=== PATIENT | female | born 1950 | race American Indian/Alaskan Native ===

== ENCOUNTER 2020-02-29 11:57 | Inpatient (IN) | payer OTHER ==
--- NOTE | 2020-02-29 12:15 | Consultation ---
History of Present Illness Consult date: 02/29/20 History of present illness: [facility] Date of Service: 02/29/2020 12:09:20 Impression: Rule Out Acute Ischemic Stroke Syncope Comments/Sign-Out: 69 y/o woman with h/o CAD presents to the ED after a reported syncopal episode. NIHSS 1 (missed month). Has no focal neurologic deficits. Metrics: Last Known Well: 02/29/2020 11:30:00 [facility] Notification Time: 02/29/2020 12:08:52 Arrival Time: 02/29/2020 11:57:00 Stamp Time: 02/29/2020 12:09:20 Time First Login Attempt: 02/29/2020 12:12:06 Video Start Time: 02/29/2020 12:12:06 Symptoms: syncope NIHSS Start Assessment Time: 02/29/2020 12:17:28 Patient is not a candidate for tPA. Patient was not deemed candidate for tPA thrombolytics because of Resolved symptoms (no residual disabling symptoms). Video End Time: 02/29/2020 12:36:26 CT head was reviewed. Lower Likelihood of Large Vessel Occlusion but Following Stat Studies are Recomm ended CTA Head and Neck. ED Physician notified of diagnostic impression and management plan on 02/29/2020 12:37:24 Our recommendations are outlined below. Recommendations: Activate Stroke Protocol Admission/Order Set Stroke/Telemetry Floor Neuro Checks Bedside Swallow Eval DVT Prophylaxis IV Fluids, Normal Saline Head of Bed 30 Degrees Euglycemia and Avoid Hyperthermia (PRN Acetaminophen) ASA if no contraindication Routine Consultation with Inhouse Neurology for Follow up Care Sign Out: Discussed with Emergency Department Provider History of Present Illness: Patient is a 69 year old Female. Patient was brought by EMS for symptoms of syncope 69 y/o woman with h/o CAD presents to the ED after a reported syncopal episode. Last reported well at 1100 as per EMS at bedside. EMS reported she was diaphoretic and had garbled speech at the scene. Emergent telestroke consult requested. CT head reviewed and case discussed with ED staff. No family at bedside. ED staff does not have any contact information on the family. NIHSS 1 (missed month). Patient is fluent, follows commands has does not have any focal motor/sensory deficits. She says she does not know why she is in the hospital. CTA head/neck pending Examination: 1A: Level of Consciousness - Alert; keenly responsive + 0 1B: Ask Month and Age - 1 Question Right + 1 1C: Blink Eyes & Squeeze Hands - Performs Both Tasks + 0 2: Test Horizontal Extraocular Movements - Normal + 0 3: Test Visual Street - No Visual Loss + 0 4: Test Facial Palsy (Use Grimace if Obtunded) - Normal symmetry + 0 5A: Test Left Arm Motor Drift - No Drift for 10 Seconds + 0 5B: Test Right Arm Motor Drift - No Drift for 10 Seconds + 0 6A: Test Left Leg Motor Drift - No Drift for 5 Seconds + 0 6B: Test Right Leg Motor Drift - No Drift for 5 Seconds + 0 7: Test Limb Ataxia (FNF/Heel-Platt) - No Ataxia + 0 8: Test Sensation - Normal; No sensory loss + 0 9: Test Language/Aphasia - Normal; No aphasia + 0 10: Test Dysarthria - Normal + 0 11: Test Extinction/Inattention - No abnormality + 0 NIHSS Score: 1 Patient/Family was informed the Neurology Consult would happen via TeleHealth consult by way of interactive audio and video telecommunications and consented to receiving care in this manner. Due to the immediate potential for life-threatening deterioration due to underlying acute neurologic illness, I spent 25 minutes providing critical care. This time includes time for face to face visit via telemedicine, review of medical records, imaging studies and discussion of findings with providers, the patient and/or family. Dr Benitez Martínez [facility] Case [id number] Medications and Allergies Allergies Allergy/AdvReac Type Severity Reaction Status Date / Time No Known Allergies Allergy Unverified 02/21/16 12:44 Home Medications Medication Instructions Recorded Confirmed Last Taken Type AtorvaSTATin [Lipitor] 80 mg PO QHS #60 tablet 02/24/16 Unknown Rx Heparin/ 0.45% NaCl Drip [Heparin/ 500 ml IV TITRATE #1 bag 02/24/16 Unknown Rx 0.45% NaCl-25,000 Unit/500 ml] Losartan [Cozaar] 50 mg PO QDAY #30 tablet 02/24/16 Unknown Rx Metoprolol [Lopressor TAB] 50 mg PO Q8H #60 tablet 02/24/16 Unknown Rx Nitroglycerin [Nitrostat] 0.4 mg SL .Q5MIN PRN #20 tablet 02/24/16 Unknown Rx Results - Laboratory Findings CBC and BMP: 02/29/20 12:18 Abnormal Lab Findings: Abnormal Labs 02/29/20 12:14 POC Glucose 194 H
[2020-02-29 12:37] LABS: Basophils % (Auto) 0.7 % (0.0-1.8); Eosinophils % (Auto) 0.7 % (0.0-4.3); Hematocrit 42.1 % (30.3-42.9); Hemoglobin 13.9 gm/dl (10.1-14.3); Lymphocytes % (Auto) 36.7 % (13.4-35.0); Mean Corpuscular HGB Conc 33 % (30-34); Mean Corpuscular Volume 91 fl (79-97); Monocytes # (Auto) 0.3 K/mm3 (0.0-0.8); Monocytes % (Auto) 6.2 % (0.0-7.3); Platelet Count 203 K/mm3 (140-440); Red Blood Count 4.64 M/mm3 (3.65-5.03); Red Cell Distribution Width 14.7 % (13.2-15.2)
--- NOTE | 2020-02-29 12:45 | Cat Scan Report ---
CT head/brain wo con INDICATION: Slurred speech and weakness. TECHNIQUE: All CT scans at this location are performed using CT dose reduction for ALARA by means of automated e xposure control. COMPARISON: None available. FINDINGS: There is no acute hemorrhage, adverse mass effect, or hydrocephalus. There is no appreciable acute in farct. There are chronic small infarcts in the left occipital lobe, left inferior parietal lobule and left middle frontal gyrus. Ventricular and cisternal size appears normal for age. Included paranasal sinuses and mastoid air cells are clear. IMPRESSION: 1. No acute findings. No appreciable acute infarct. 2. Chronic small infarcts in the left cerebrum as described above. Findings discussed with Dr. Fuchs at 11:40 AM on 02/29/2020. Signer Name: Lazaro Troncoso MD Signed: 02/29/2020 12:40 PM Workstation Name: [id number]
[2020-02-29 12:47] LABS: INR 0.99 (0.87-1.13)
[2020-02-29 12:49] LABS: Partial Thromboplastin Time 25.5 Sec. (24.2-36.6); Thrombin Time 15.9 Sec. (15.1-19.6)
[2020-02-29 12:52] LABS: BUN/Creatinine Ratio 13; Blood Urea Nitrogen 12 mg/dL (7-17); Hemolysis Index 15
--- NOTE | 2020-02-29 12:55 | XRay Report ---
CHEST 1 VIEW INDICATION / CLINICAL INFORMATION: hypertension. COMPARISON: 02/21/2016 FINDINGS: SUPPORT DEVICES: None. HEART / MEDIASTINUM: Changes of median sternotomy are noted. LUNGS / PLEURA: No focal infiltrate is seen. No pneumothorax is seen.. No pneumothorax. ADDITIONAL FINDINGS: No significant additional findings. IMPRESSION: 1. No acute findings. Signer Name: Fantasma Schultz MD Signed: 02/29/2020 12:51 PM Workstation Name: [id number]
[2020-02-29 13:10] LABS: Alanine Aminotransferase 10 units/L (7-56); Albumin 3.9 g/dL (3.9-5)
[2020-02-29 13:16] LABS: Bilirubin,Direct < 0.2 mg/dL (0-0.2)
--- NOTE | 2020-02-29 13:18 | Emergency Department Report ---
ED Neuro Deficit HPI - General Stated Complaint: POSS STROKE Time Seen by Provider: 02/29/20 12:18 Source: EMS - History of Present Illness Initial Comments: This is a 69-year-old female with limited ability to provide historical i nformation. As I understand from paramedics patient had a syncopal episode at home. After which her speech was somewhat garbled. There is no report of seizure activity. She has no history of seizure. Patient presents to the emergency department. She states that she is back to normal. She seems to speak Vietnamese poorly and tends to rotate between languages somewhat inappropriately. I do not know what her [place] language is. There is no family available. Patient was initially seen by the tele-neurologist who is working with the same limited historical information. He found the patient to have a stroke score of 1 which I did replicate. I reviewed the patient's CT which shows at least 3 old left hemispheric stroke with the largest in the occipital area. Radiologist confirmed that there was no acute process. Tele-neurologist Dr. Barrera stated that he doubted that the patient had a large vessel occlusion. Notwithstanding. he wanted the patient to go for emergent CT angiogram which she had ordered. Results are pending. Reviewed the patient's previous medical record indicates that she has nonischemic cardiomyopathy with multivessel disease and an EF of 25 to 30% as per her 2016 discharge summary: Hospital course: Patient is a 65 years old -J[place] female, with no past medical history, visiting here from [facility], who presented to the hospital with two-week history of chest pain associated with shortness of breath, nausea and vomiting. Found to have EKG changes and elevated troponin, as well as, uncontrolled hypertension and hyperlipidemia. He underwent myocardial perfusion scan which was abnormal, so cardiology was consulted and she underwent cardiac catheterization that revealed severe multivessel disease including distal left main, ischemic cardiomyopathy with EF 25-30%. Started on appropriate treatment - BB, ACEI, antiplatelet, statin. She is transferred to [facility] for CABG (placed on heparin drip). Disposition: DC/TX ANOTHER TYPE HEALTHCARE Time spent for discharge: 45 min spent coordinating patient's transfer to [facility] - Discharge Diagnoses (1) NSTEMI (non-ST elevated myocardial infarction) Status: Acute (2) CAD in [place] artery Status: Acute (3) Ischemic cardiomyopathy Status: Acute (4) HTN (hypertension) Status: Acute (5) Hyperlipidemia History of same: No (Uncertain) Place: home Severity: moderate, severe Quality: other On Anticoagulants: No Context: sudden onset Associated Symptoms: denies other symptoms (Limited historical information) - Related Data Home Medications: Home Medications Medication Instructions Recorded Confirmed Last Taken Aspirin BABY CHEW TAB 81 mg PO DAILY 02/29/20 02/29/20 Unknown Atorvastatin 80 mg PO QHS 02/29/20 02/29/20 Unknown Ibuprofen [Motrin] 800 mg PO DAILY PRN 02/29/20 02/29/20 Unknown Om3/Dha/Epa/Cod Liver Oil/A/D3 1 each PO DAILY 02/29/20 02/29/20 Unknown [Cod Liver Oil Softgel] amLODIPine [Norvasc] 5 mg PO DAILY 02/29/20 02/29/20 Unknown carvediloL [Coreg] 12.5 mg PO BID 02/29/20 02/29/20 Unknown predniSONE [Deltasone] 20 mg PO BID 02/29/20 02/29/20 Unknown Allergies/Adverse Reactions: Allergies Allergy/AdvReac Type Severity Reaction Status Date / Time No Known Allergies Allergy Unverified 02/21/16 12:44 ED Review of Systems ROS: Stated complaint: POSS STROKE Other details as noted in HPI Comment: Unobtainable due to pts medical conditions ED Past Medical Hx - Past Medical History Hx Arthritis: Yes (pt.'s and daughter effect left knee the most) Additional medical history: Prior stroke. - Social History Smoking Status: Never Smoker - Medications Home Medications: Home Medications Medication Instructions Recorded Confirmed Last Taken Type Aspirin BABY CHEW TAB 81 mg PO DAILY 02/29/20 02/29/20 Unknown History Atorvastatin 80 mg PO QHS 02/29/20 02/29/20 Unknown History Ibuprofen [Motrin] 800 mg PO DAILY PRN 02/29/20 02/29/20 Unknown History Om3/Dha/Epa/Cod Liver Oil/A/D3 1 each PO DAILY 02/29/20 02/29/20 Unknown History [Cod Liver Oil Softgel] amLODIPine [Norvasc] 5 mg PO DAILY 02/29/20 02/29/20 Unknown History carvediloL [Coreg] 12.5 mg PO BID 02/29/20 02/29/20 Unknown History predniSONE [Deltasone] 20 mg PO BID 06/21/20 06/21/20 Unknown History ED Neuro Physical Exam - General Limitations: Language Barrier General appearance: alert, in no apparent distress Suspected Stroke: Yes (Possible) - Head Head exam: Present: atraumatic, normocephalic - Eye Eye exam: Present: normal appearance. Absent: scleral icterus - ENT ENT exam: Present: mucous membranes moist - Neck Neck exam: Present: normal inspection - Respiratory Respiratory exam: Present: normal lung sounds bilaterally. Absent: respiratory distress - Cardiovascular Cardiovascular Exam: Present: regular rate, normal rhythm. Absent: systolic murmur, diastolic murmur, rubs, gallop - GI/Abdominal GI/Abdominal exam: Present: soft, normal bowel sounds. Absent: distended, tenderness, guarding, rebound - Extremities Exam Extremities exam: Present: normal inspection - Back Exam Back exam: Present: normal inspection - Neurological Exam Neurological exam: Present: alert, oriented X3, CN II-XII intact. Absent: motor sensory deficit - NIHSS Assessment Interval: Baseline 1a. Level of Consciousness: alert/keenly responsive 1b. LOC Questions: answers 1 question correctly 1c. LOC Commands: performs tasks correctly 2. Best Gaze: normal 3. Visual: no visual loss (Expect the patient does have a visual loss considering the large occipital stroke that she has. She is difficult to examine at this point.) 4. Facial Palsy: normal symmetrical movement 5b. Motor Arm Right: no drift 5a. Motor Arm Left: no drift 6a. Motor Leg Left: no drift 6b. Motor Leg Right: no drift 7. Limb Ataxia: absent 8. Sensory: normal 9. Best Language: no aphasia 10. Dysarthria: normal (I am uncertain as to what the patient's language ability is) 11. Extinction/Inattention: no abnormality Total Score: 1 Stroke Severity: Minor Stroke - Psychiatric Psychiatric exam: Present: normal affect, normal mood - Skin Skin exam: Present: warm, dry, intact, normal color. Absent: rash ED Course Vital Signs 02/29/20 02/29/20 02/29/20 13:05 13:15 13:30 Pulse Rate 80 65 66 Respiratory Rate Blood Pressure 165/90 164/91 O2 Sat by Pulse 97 99 Oximetry 02/29/20 02/29/20 02/29/20 13:45 14:42 14:46 Pulse Rate 68 68 64 Respiratory 11 L 13 Rate Blood Pressure 167/91 157/83 157/83 O2 Sat by Pulse 99 99 100 Oximetry 02/29/20 02/29/20 02/29/20 15:00 15:16 15:30 Pulse Rate 68 65 67 Respiratory 12 14 19 Rate Blood Pressure 165/91 167/91 167/91 O2 Sat by Pulse 98 100 99 Oximetry 02/29/20 02/29/20 15:46 16:00 Pulse Rate 63 61 Respiratory 17 15 Rate Blood Pressure 167/91 166/88 O2 Sat by Pulse 99 98 Oximetry - Reevaluation(s) Reevaluation #1: Patient does not meet criteria for TPA. Is uncertain as to what the cause of her syncopal episode is. Personally I would think that a seizure is a real possibility considering the presence of multiple previous infarcts in the left hemisphere. The tele-neurologist is pursuing the possibility of large vessel occlusion. I agree that this is seemingly unlikely. Patient will be admitted to the hospital to complete her stroke work-up and for further evaluation and care. 02/29/20 13:21 Reevaluation #2: I spoke with the tele-neurologist at [facility] who also reviewed the CT. In addition he had a case conference with neurosurgery at [facility]. 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 She has 3 chronic left hemispheric strokes. They are interested in transferring her for catheter angiography. However at this time I do not have a bed. They stated that by 6-7 o'clock they will call me back with bed availability. 02/29/20 15:38 Reevaluation #3: Patient remains fully ambulatory. She is able to walk to the bathroom on her own. Nurses instructed to document neurochecks. Still waiting to hear from [facility] concerning bed availability. 02/29/20 17:13 Reevaluation #4: I spoke with the neurologist on-call at [facility]. He stated that he felt the patient was stable to stay at our facility overnight. They will place the patient on a waiting list. When a bed becomes available they will contact the hospitalist service to initiate transfer. Dr. Anderson is informed. The patient is admitted to the telemetry. 02/29/20 17:55 - Lab Data Result diagrams: 02/29/20 12:18 02/29/20 12:18 Lab Results 02/29/20 02/29/20 02/29/20 Range/Units 12:14 12:18 12:18 WBC 5.4 (4.5-11.0) K/mm3 RBC 4.64 (3.65-5.03) M/mm3 Hgb 13.9 (10.1-14.3) gm/dl Hct 42.1 (30.3-42.9) % MCV 91 (79-97) fl MCH 30 (28-32) pg MCHC 33 (30-34) % RDW 14.7 (13.2-15.2) % Plt Count 203 (140-440) K/mm3 Lymph % (Auto) 36.7 H (13.4-35.0) % [place] % (Auto) 6.2 (0.0-7.3) % Eos % (Auto) 0.7 (0.0-4.3) % Baso % (Auto) 0.7 (0.0-1.8) % Lymph # 2.0 (1.2-5.4) K/mm3 [place] # 0.3 (0.0-0.8) K/mm3 Eos # 0.0 (0.0-0.4) K/mm3 Baso # 0.0 (0.0-0.1) K/mm3 Seg Neutrophils % 55.7 (40.0-70.0) % Seg Neutrophils # 3.0 (1.8-7.7) K/mm3 PT 12.9 (12.2-14.9) Sec. INR 0.99 (0.87-1.13) APTT 25.5 (24.2-36.6) Sec. Thrombin Time 15.9 (15.1-19.6) Sec. Sodium (137-145) mmol/L Potassium (3.6-5.0) mmol/L Chloride (98-107) mmol/L Carbon Dioxide (22-30) mmol/L Anion Gap mmol/L BUN (7-17) mg/dL Creatinine (0.7-1.2) mg/dL Estimated GFR ml/min BUN/Creatinine Ratio % Glucose (65-100) mg/dL POC Glucose 194 H (70-105) Calcium (8.4-10.2) mg/dL Total Bilirubin (0.1-1.2) mg/dL Direct Bilirubin (0-0.2) mg/dL Indirect Bilirubin mg/dL AST (5-40) units/L ALT (7-56) units/L Alkaline Phosphatase (35-129) units/L Troponin T (0.00-0.029) ng/mL NT-Pro-B Natriuret Pep (0-900) pg/mL Total Protein (6.3-8.2) g/dL Albumin (3.9-5) g/dL Albumin/Globulin Ratio % 02/29/20 02/29/20 Range/Units 12:18 12:30 WBC (4.5-11.0) K/mm3 RBC (3.65-5.03) M/mm3 Hgb (10.1-14.3) gm/dl Hct (30.3-42.9) % MCV (79-97) fl MCH (28-32) pg MCHC (30-34) % RDW (13.2-15.2) % Plt Count (140-440) K/mm3 Lymph % (Auto) (13.4-35.0) % [place] % (Auto) (0.0-7.3) % Eos % (Auto) (0.0-4.3) % Baso % (Auto) (0.0-1.8) % Lymph # (1.2-5.4) K/mm3 [place] # (0.0-0.8) K/mm3 Eos # (0.0-0.4) K/mm3 Baso # (0.0-0.1) K/mm3 Seg Neutrophils % (40.0-70.0) % Seg Neutrophils # (1.8-7.7) K/mm3 PT (12.2-14.9) Sec. INR (0.87-1.13) APTT (24.2-36.6) Sec. Thrombin Time (15.1-19.6) Sec. Sodium 138 (137-145) mmol/L Potassium 4.2 (3.6-5.0) mmol/L Chloride 101.3 (98-107) mmol/L Carbon Dioxide 26 (22-30) mmol/L Anion Gap 15 mmol/L BUN 12 (7-17) mg/dL Creatinine 0.9 (0.7-1.2) mg/dL Estimated GFR > 60 ml/min BUN/Creatinine Ratio 13 % Glucose 179 H (65-100) mg/dL POC Glucose (70-105) Calcium 9.0 (8.4-10.2) mg/dL Total Bilirubin 0.80 (0.1-1.2) mg/dL Direct Bilirubin < 0.2 (0-0.2) mg/dL Indirect Bilirubin 0.6 mg/dL AST 16 (5-40) units/L ALT 10 (7-56) units/L Alkaline Phosphatase 103 (35-129) units/L Troponin T < 0.010 (0.00-0.029) ng/mL NT-Pro-B Natriuret Pep 19.16 (0-900) pg/mL Total Protein 7.1 (6.3-8.2) g/dL Albumin 3.9 (3.9-5) g/dL Albumin/Globulin Ratio 1.2 % Laboratory Results - last 24 hr 02/29/20 02/29/20 02/29/20 12:14 12:18 12:18 WBC 5.4 RBC 4.64 Hgb 13.9 Hct 42.1 MCV 91 MCH 30 MCHC 33 RDW 14.7 Plt Count 203 Lymph % (Auto) 36.7 H [place] % (Auto) 6.2 Eos % (Auto) 0.7 Baso % (Auto) 0.7 Lymph # 2.0 [place] # 0.3 Eos # 0.0 Baso # 0.0 Seg Neutrophils % 55.7 Seg Neutrophils # 3.0 PT 12.9 INR 0.99 APTT 25.5 Thrombin Time 15.9 Sodium Potassium Chloride Carbon Dioxide Anion Gap BUN Creatinine Estimated GFR BUN/Creatinine Ratio Glucose POC Glucose 194 H Calcium Total Bilirubin Direct Bilirubin Indirect Bilirubin AST ALT Alkaline Phosphatase Troponin T NT-Pro-B Natriuret Pep Total Protein Albumin Albumin/Globulin Ratio 02/29/20 02/29/20 12:18 12:30 WBC RBC Hgb Hct MCV MCH MCHC RDW Plt Count Lymph % (Auto) [place] % (Auto) Eos % (Auto) Baso % (Auto) Lymph # [place] # Eos # Baso # Seg Neutrophils % Seg Neutrophils # PT INR APTT Thrombin Time Sodium 138 Potassium 4.2 Chloride 101.3 Carbon Dioxide 26 Anion Gap 15 BUN 12 Creatinine 0.9 Estimated GFR > 60 BUN/Creatinine Ratio 13 Glucose 179 H POC Glucose Calcium 9.0 Total Bilirubin 0.80 Direct Bilirubin < 0.2 Indirect Bilirubin 0.6 AST 16 ALT 10 Alkaline Phosphatase 103 Troponin T < 0.010 NT-Pro-B Natriuret Pep 19.16 Total Protein 7.1 Albumin 3.9 Albumin/Globulin Ratio 1.2 - EKG Data -: EKG Interpreted by Me EKG shows normal: sinus rhythm, axis, intervals, QRS complexes, ST-T waves Interpretation: nonspecific ST-T wave magdalena, other (Poor R wave progression) - Radiology Data Radiology results: report reviewed (Chest x-ray no acute process) ICA and basilar artery occlusion. 3 old left hemispheric strokes. No acute finding. - Thrombolytic Inclusion/Exclusion Thrombolytic Contraindications: Rapidily Improving s/s Critical care attestation.: If time is entered above; I have spent that time in minutes in the direct care of this critically ill patient, excluding procedure time. ED Disposition Clinical Impression: Basilar artery occlusion Syncope Qualifiers: Syncope type: unspecified Qualified Code(s): R55 - Syncope and collapse Internal carotid artery occlusion Qualifiers: Laterality: left Qualified Code(s): I65.22 - Occlusion and stenosis of left carotid artery Disposition: DC-09 OP ADMIT IP TO THIS HOSP Is pt being admited?: Yes Does the pt Need Aspirin: Yes Condition: Stable Time of Disposition: 14:05
[2020-02-29] MEDS ORDERED: ASPIRIN 325 MG TAB PO ONE (14:05)
[2020-02-29] MEDS ORDERED: ASPIRIN 325 MG TAB ONE (14:39)
--- NOTE | 2020-02-29 14:49 | Cat Scan Report ---
CTA HEAD AND NECK WITH CONTRAST HISTORY: Syncope COMPARISON: None. TECHNIQUE: All CT scans at this location are performed using CT dose reduction for ALARA by means of automated exposure control.. 3-D/MIP reformats postprocessed. Percentage stenosis is determined by d irect quantitative measurements of diseased internal carotid artery diameter compared with normal dis mabel internal carotid artery reference segments or by criteria similar to NASCET where applicable. CONTRAST: 100 ml of Omnipaque 350 FINDINGS: CTA HEAD: Intracranial vertebral arteries: The left vertebral artery ends in the left PICA. There is no flow vi sualized in the right vertebral artery. Basilar artery: Essentially completely nonopacified. There is minimal opacification of the superior m argin of the artery from collaterals. Posterior cerebral arteries: Appear reasonably well opacified without significant stenosis or occlusi on. Intracranial internal carotid arteries: Minimal flow in the left cavernous and supraclinoid ICA from collateral vessels. There is a probable Nunez stenosis in the distal cavernous ICA of about 50%. Anterior cerebral arteries: No significant abnormality. Middle cerebral arteries: Diminutive size of the left middle cerebral arteries relative to the right, likely due to chronic left ICA occlusion. However, left MCA branches appear reasonably well opacifie d. Dural venous sinuses:Not optimally opacified. No significant abnormality. CTA NECK: Aortic arch: No significant abnormality. Cervical vertebral arteries: The right vertebral artery has slow flow and alternatively becomes occlu ded in the mid cervical spine. There are multifocal flow-limiting stenosis in the left vertebral raúl ry, which ends in the left PICA. Common carotid arteries: No significant abnormality. Cervical internal carotid arteries: The left cervical ICA is completely occluded from its origin. The re is a high-grade stenosis of about 75-80% of the proximal right cervical ICA due to mixed plaque. Additional findings: None. IMPRESSION: 1. Very low/almost no flow visualized in the intracranial vertebrobasilar system, likely on a chronic basis. There is some opacification of the superior basilar artery from collateralization from the co mmunicating arteries and the posterior cerebral arteries are opacified. 2. Completely occluded left cervical ICA. The intracranial left ICA is reconstituted from collateral vessels. This indicates that the right ICA is providing most of the anterior circulation (as well as much of the posterior circulation). There is an approximately 75-80% stenosis of the proximal right c ervical ICA, which should be viewed clinically in this setting of other arterial occlusions. 3. Diminished flow in the left MCA branches without focal large vessel occlusion. 4. The left vertebral artery ends in the left PICA. The right vertebral artery becomes occluded in th e mid cervical spine. There are multiple flow-limiting stenosis in the opacified vertebral arteries i n the neck. Findings were discussed with the neurologist front end architect at 1:40 PM on 02/29/2020. Signer Name: Lazaro Troncoso MD Signed: 02/29/2020 2:44 PM Workstation Name: [id number]
[2020-02-29] MEDS ORDERED: HYDROmorphone 1 MG/1 ML INJ IV PRN (20:05)
[2020-02-29] MEDS ORDERED: ACETAMINOPHEN 325 MG TAB PO PRN (20:05)
[2020-02-29] MEDS ORDERED: ONDANSETRON 4 MG/2 ML INJ IV PRN (20:05)
[2020-02-29] MEDS ORDERED: oxyCODONE /ACETAMINOPHEN 5-325MG TAB PO PRN (20:05)
--- NOTE | 2020-02-29 20:05 | History and Physical Report ---
History of Present Illness Date of examination: 02/29/20 Date of admission: 02/29/20 14:05 Chief complaint: Passed out and altered speech for the last couple of hours. History of present illness: -year-old female with limited ability to provide historical informatio had a syncopal episode at home. After which her speech was somewhat garbled. There is no report of seizure activity. She has no history of seizure. Patient presents to the emergency department. She states that she is back to normal. Patient has a language barrier. Patient had a CT head which showed old 3 strokes in the occipital area. Telemetry neurologist requested CT angiogram which showed abnormal blockages. Patient is in the process of transfer to [facility] because of abnormal CT angiogram. No shortness of breath no chest pain no palpitations. No seizures. Possible syncope. -------- 2016 discharge summary: Hospital course: Patient is a 65 years old -[place]ovenian female, with no past medical history, visiting here from [facility], who presented to the hospital with two-week history of chest pain associated with shortness of breath, nausea and vomiting. Found to have EKG changes and elevated troponin, as well as, uncontrolled hypertension and hyperlipidemia. He underwent myocardial perfusion scan which was abnormal, so cardiology was consulted and she underwent cardiac catheterization that revealed severe multivessel disease including distal left main, ischemic cardiomyopathy with EF 25-30%. Started on appropriate treatment - BB, ACEI, antiplatelet, statin. She is transferred to [facility] for CABG (placed on heparin drip). - Past Medical History Arthritis: Yes (pt.'s and daughter effect left knee the most) Additional medical history: Prior stroke. Hypertension hyperlipidemia Cardiomyopathy Coronary artery disease Surgical history CABG - Social History Smoking Status: Never Smoker Family history Htn - Medications Home Medications: Home Medications Medication Instructions Recorded Confirmed Last Taken Type Aspirin BABY CHEW TAB 81 mg PO DAILY 02/29/20 02/29/20 Unknown History Atorvastatin 80 mg PO QHS 02/29/20 02/29/20 Unknown History Ibuprofen [Motrin] 800 mg PO DAILY PRN 02/29/20 02/29/20 Unknown History Om3/Dha/Epa/Cod Liver Oil/A/D3 1 each PO DAILY 02/29/20 02/29/20 Unknown History [Cod Liver Oil Softgel] amLODIPine [Norvasc] 5 mg PO DAILY 02/29/20 02/29/20 Unknown History carvediloL [Coreg] 12.5 mg PO BID 02/29/20 02/29/20 Unknown History predniSONE [Deltasone] 20 mg PO BID 02/29/20 02/29/20 Unknown History Review of Systems ROS: Constitutional no weight loss or weight gain no fever or chills HEENT no sore throat no post nasal drip no diplopia Neck no neck stiffness no lymph gland enlargement Chest and lungs no shortness of breath cough or wheezing CVS no chest pain no diaphoresis no palpitations GI no nausea no vomiting no diarrhea Genitourinary system no dysuria no flank pain Musculoskeletal system no muscle pains no joint pains [employer] FE[employer]ER syncope and dysartria Skin no rash no itching Psychiatric no depression no homicidal or suicidal tendencies Hematologic no lymphedema or bruising Endocrine no polydipsia no polyuria no cold intolerance no heat intolerance Medications and Allergies Allergies Allergy/AdvReac Type Severity Reaction Status Date / Time No Known Allergies Allergy Unverified 02/21/16 12:44 Home Medications Medication Instructions Recorded Confirmed Last Taken Type Aspirin BABY CHEW TAB 81 mg PO DAILY 02/29/20 02/29/20 Unknown History Atorvastatin 80 mg PO QHS 02/29/20 02/29/20 Unknown History Ibuprofen [Motrin] 800 mg PO DAILY PRN 02/29/20 02/29/20 Unknown History Om3/Dha/Epa/Cod Liver Oil/A/D3 1 each PO DAILY 02/29/20 02/29/20 Unknown History [Cod Liver Oil Softgel] amLODIPine [Norvasc] 5 mg PO DAILY 02/29/20 02/29/20 Unknown History carvediloL [Coreg] 12.5 mg PO BID 02/29/20 02/29/20 Unknown History predniSONE [Deltasone] 20 mg PO BID 02/29/20 02/29/20 Unknown History Exam - Constitutional Vitals: Temp Pulse Resp BP Pulse Ox 71 15 166/88 100 02/29/20 17:00 02/29/20 17:00 02/29/20 17:00 02/29/20 17:00 General appearance: Present: no acute distress, well-nourished - EENT Eyes: Present: PERRL ENT: hearing intact, clear oral mucosa - Neck Neck: Present: supple, normal ROM - Respiratory Respiratory effort: normal Respiratory: bilateral: CTA - Cardiovascular Heart rate: 78 Rhythm: regular Heart Sounds: Present: S1 & S2. Absent: rub, click - Extremities Extremities: no ischemia, pulses intact, pulses symmetrical, No edema Peripheral Pulses: within normal limits - Abdominal General gastrointestinal: Present: soft, non-tender, non-distended, normal bowel sounds Female genitourinary: Present: normal - Integumentary Integumentary: Present: clear, warm, dry - Musculoskeletal Musculoskeletal: gait normal, strength equal bilaterally - Psychiatric Psychiatric: appropriate mood/affect, intact judgment & insight - Neurologic Neurologic: CNII-XII intact, moves all extremities, other (Speech normal) - Allied Health Allied health notes reviewed: nursing, case management HEART Score - HEART Score Troponin: Troponin T < 0.010 ng/mL (0.00-0.029) 02/29/20 12:18 Results - Labs CBC & Chem 7: 02/29/20 12:18 02/29/20 12:18 Labs: Laboratory Last Values WBC 5.4 K/mm3 (4.5-11.0) 02/29/20 12:18 RBC 4.64 M/mm3 (3.65-5.03) 02/29/20 12:18 Hgb 13.9 gm/dl (10.1-14.3) 02/29/20 12:18 Hct 42.1 % (30.3-42.9) 02/29/20 12:18 MCV 91 fl (79-97) 02/29/20 12:18 MCH 30 pg (28-32) 02/29/20 12:18 MCHC 33 % (30-34) 02/29/20 12:18 RDW 14.7 % (13.2-15.2) 02/29/20 12:18 Plt Count 203 K/mm3 (140-440) 02/29/20 12:18 Lymph % (Auto) 36.7 % (13.4-35.0) H 02/29/20 12:18 Knott % (Auto) 6.2 % (0.0-7.3) 02/29/20 12:18 Eos % (Auto) 0.7 % (0.0-4.3) 02/29/20 12:18 Baso % (Auto) 0.7 % (0.0-1.8) 02/29/20 12:18 Lymph # 2.0 K/mm3 (1.2-5.4) 02/29/20 12:18 Knott # 0.3 K/mm3 (0.0-0.8) 02/29/20 12:18 Eos # 0.0 K/mm3 (0.0-0.4) 02/29/20 12:18 Baso # 0.0 K/mm3 (0.0-0.1) 02/29/20 12:18 Seg Neutrophils % 55.7 % (40.0-70.0) 02/29/20 12:18 Seg Neutrophils # 3.0 K/mm3 (1.8-7.7) 02/29/20 12:18 PT 12.9 Sec. (12.2-14.9) 02/29/20 12:18 INR 0.99 (0.87-1.13) 02/29/20 12:18 APTT 25.5 Sec. (24.2-36.6) 02/29/20 12:18 Thrombin Time 15.9 Sec. (15.1-19.6) 02/29/20 12:18 Sodium 138 mmol/L (137-145) 02/29/20 12:18 Potassium 4.2 mmol/L (3.6-5.0) 02/29/20 12:18 Chloride 101.3 mmol/L (98-107) 02/29/20 12:18 Carbon Dioxide 26 mmol/L (22-30) 02/29/20 12:18 Anion Gap 15 mmol/L 02/29/20 12:18 BUN 12 mg/dL (7-17) 02/29/20 12:18 Creatinine 0.9 mg/dL (0.7-1.2) 02/29/20 12:18 Estimated GFR > 60 ml/min 02/29/20 12:18 BUN/Creatinine Ratio 13 % 02/29/20 12:18 Glucose 179 mg/dL (65-100) H 02/29/20 12:18 POC Glucose 194 (70-105) H 02/29/20 12:14 Calcium 9.0 mg/dL (8.4-10.2) 02/29/20 12:18 Total Bilirubin 0.80 mg/dL (0.1-1.2) 02/29/20 12:30 Direct Bilirubin < 0.2 mg/dL (0-0.2) 02/29/20 12:30 Indirect Bilirubin 0.6 mg/dL 02/29/20 12:30 AST 16 units/L (5-40) 02/29/20 12:30 ALT 10 units/L (7-56) 02/29/20 12:30 Alkaline Phosphatase 103 units/L (35-129) 02/29/20 12:30 Troponin T < 0.010 ng/mL (0.00-0.029) 02/29/20 12:18 NT-Pro-B Natriuret Pep 19.16 pg/mL (0-900) 02/29/20 12:30 Total Protein 7.1 g/dL (6.3-8.2) 02/29/20 12:30 Albumin 3.9 g/dL (3.9-5) 02/29/20 12:30 Albumin/Globulin Ratio 1.2 % 02/29/20 12:30 Short CBC 02/29/20 Range/Units 12:18 WBC 5.4 (4.5-11.0) K/mm3 Hgb 13.9 (10.1-14.3) gm/dl Hct 42.1 (30.3-42.9) % Plt Count 203 (140-440) K/mm3 [facility] 02/29/20 12:18 Sodium 138 Potassium 4.2 Chloride 101.3 Carbon Dioxide 26 BUN 12 Creatinine 0.9 Glucose 179 H Calcium 9.0 Cardiac Enzymes 02/29/20 Range/Units 12:18 Troponin T < 0.010 (0.00-0.029) ng/mL Liver Function 02/29/20 Range/Units 12:30 Total Bilirubin 0.80 (0.1-1.2) mg/dL Direct Bilirubin < 0.2 (0-0.2) mg/dL AST 16 (5-40) units/L ALT 10 (7-56) units/L Alkaline Phosphatase 103 (35-129) units/L Albumin 3.9 (3.9-5) g/dL Short CBC 02/29/20 Range/Units 12:18 WBC 5.4 (4.5-11.0) K/mm3 Hgb 13.9 (10.1-14.3) gm/dl Hct 42.1 (30.3-42.9) % Plt Count 203 (140-440) K/mm3 [facility] 02/29/20 12:18 Sodium 138 Potassium 4.2 Chloride 101.3 Carbon Dioxide 26 BUN 12 Creatinine 0.9 Glucose 179 H Calcium 9.0 Cardiac Enzymes 02/29/20 Range/Units 12:18 Troponin T < 0.010 (0.00-0.029) ng/mL Liver Function 02/29/20 Range/Units 12:30 Total Bilirubin 0.80 (0.1-1.2) mg/dL Direct Bilirubin < 0.2 (0-0.2) mg/dL AST 16 (5-40) units/L ALT 10 (7-56) units/L Alkaline Phosphatase 103 (35-129) units/L Albumin 3.9 (3.9-5) g/dL - Imaging and Cardiology EKG: report reviewed CT Scan - head: report reviewed Imaging and Cardiology: Neck CTA Very low/almost no flow visualized in the intracranial vertebrobasilar system likely on a chronic basis. There is some opacification of the superior basilar artery from collateralization from the communicating arteries and the posterior cerebral arteries are opacified Completely occluded left cervical ICA. The intracranial left ICA is reconstituted from collateral vessels. This indicates right ICA swallowing most of the anterior circulation as well as possible posterior circulation. There is an approximately 75 to 80% stenosis of the proximal right thyroid pole ICA. Which is simply new clinically in the setting of other arterial occlusions. Diminished flow in the left MCA branches without focal large vessel occlusion. The left vertebral artery ends in the left PICA. The right vertebral artery becomes occluded in the mid cervical spine. There are multiple flow-limiting stenosis and was opacified vertebral arteries in the neck .Head CTA Same findings as the neck CTA with completely occluded left cervical ICA and collaterals. Also very low/almost no flow visualized in the intracranial v ertebrobasilar system likely on a chronic basis. Head CT No acute findings no appreciable acute infarction Chronic small infarcts in the left cerebrum. Assessment and Plan Advance Directives: Yes (full code) Plan of care discussed with patient/family: Yes - Patient Problems (1) TIA (transient ischemic attack) Status: Acute Plan to address problem: Patient had dysarthria and some weakness and possible syncope. Work-up revealed massive blockage in the left ICA and the posterior vertebral system. ED physician Dr. Fuchs initiated transfer to [facility] for left ICA occlusion angioplasty versus carotid arterectomy. Patient was accepted by [facility] to be transferred to [facility] when bed available. To call the transfer center again today to know the status. Neuro consult requested (2) HTN (hypertension) Status: Chronic Qualifiers: Hypertension type: essential hypertension Qualified Code(s): I10 - Essential (primary) hypertension Plan to address problem: Continue antihypertensives. (3) Hyperlipidemia Status: Chronic Qualifiers: Hyperlipidemia type: mixed hyperlipidemia Qualified Code(s): E78.2 - Mixed hyperlipidemia Plan to address problem: Continue statins. (4) CAD in [place] artery Status: Acute Plan to address problem: Continue aspirin. And statins. (5) Ischemic cardiomyopathy Status: Chronic Plan to address problem: Stable (6) DVT prophylaxis Status: Acute Plan to address problem: On heparin and GI prophylaxis
[2020-02-29] MEDS ORDERED: SODIUM CHLORIDE 0.9% 1000 ML 1,000 ML IV SCH (20:15)
[2020-02-29 20:32] VITALS: BP 157/91
[2020-02-29] MEDS ORDERED: FAMOTIDINE 20 MG TAB PO SCH (22:00)
[2020-03-01] MEDS ORDERED: HEPARIN 5,000 UNIT/1 ML VIAL SUB-Q SCH (10:00)
[2020-03-01] MEDS ORDERED: ASPIRIN 325 MG TAB PO SCH (10:00)
== END 2020-02-29 22:30 | disposition short-term general hospital (02) | DRG 68 ==
LOC: ED 11:57 → 4A 14:05
PROVIDERS: ADMIT Internal Medicine; ATTEND Internal Medicine
DX: I65.22 Occlusion and stenosis of left carotid artery (principal); I10 Essential (primary) hypertension; R47.1 Dysarthria and anarthria; I25.10 Atherosclerotic heart disease of native coronary artery without angina pectoris; E78.2 Mixed hyperlipidemia; I25.5 Ischemic cardiomyopathy; Z95.1 Presence of aortocoronary bypass graft; Z82.49 Family history of ischemic heart disease and other diseases of the circulatory system; Z79.82 Long term (current) use of aspirin; Z79.899 Other long term (current) drug therapy
CPT/HCPCS: 36415; 70450; 70496; 70498; 71045; 80048; 80076; 82962; 83880; 84484; 85025; 85610; 85670; 85730; 93005; G0378; A9270-GY; Q9967

== ENCOUNTER 2020-03-14 16:21 | Observation (INO) | payer OTHER ==
--- NOTE | 2020-03-14 17:34 | Emergency Department Report ---
ED Neuro Deficit HPI - General Chief Complaint: Neuro Symptoms/Deficit Stated Complaint: WEAKNESS Time Seen by Provider: 03/14/20 17:05 Source: family, EMS Mode of arrival: Stretcher Limitations: No Limitations - History of Present Illness Initial Comments: Patient is 69 years old female with history of hypertension and stroke. Patient brought to the emergency room via EMS from home for evaluation of slurred speech and inability to walk for the last 2 days. Patient was seen here 2 weeks ago for similar presentation patient was transferred to [facility] because of the finding of multiple vertebral arteries stenosis. I discussed the patient w ith her son at [phone]. He stated that after his mother was discharged from [facility] she was doing well until 2 days ago when she started having difficulty speaking and drooling. She she also started having difficulty walking. According to his report he stated that they discussed with them the risk of surgery and the duct prefer not to do the surgery. He said they follow-up with her primary care physician 2 days after discharge from [place] and she was doing fine at that time and they order her some Benadryl to help with sleep. During my assessment patient with significant slurred speech and dysarthria. Patient is also unable to lift up her both right and left legs. -: days(s) (2) Location: speech, dysarthria, left leg, right leg Presenting Symptoms: Present: Weak/Paralyzed One Side, Unable to Speak Clearly Place: home - Related Data Home Medications: Home Medications Medication Instructions Recorded Confirmed Last Taken Aspirin BABY CHEW TAB 81 mg PO DAILY 02/29/20 02/29/20 Unknown Atorvastatin 80 mg PO QHS 02/29/20 02/29/20 Unknown Ibuprofen [Motrin] 800 mg PO DAILY PRN 02/29/20 02/29/20 Unknown Om3/Dha/Epa/Cod Liver Oil/A/D3 1 each PO DAILY 02/29/20 02/29/20 Unknown [Cod Liver Oil Softgel] amLODIPine [Norvasc] 5 mg PO DAILY 02/29/20 02/29/20 Unknown carvediloL [Coreg] 12.5 mg PO BID 02/29/20 02/29/20 Unknown predniSONE [Deltasone] 20 mg PO BID 02/29/20 02/29/20 Unknown Allergies/Adverse Reactions: Allergies Allergy/AdvReac Type Severity Reaction Status Date / Time No Known Allergies Allergy Unverified 02/21/16 12:44 ED Review of Systems ROS: Stated complaint: WEAKNESS Other details as noted in HPI Comment: Unobtainable due to pts medical conditions ED Past Medical Hx - Past Medical History Previous Medical History?: Yes Hx Hypertension: Yes Hx CVA: No Hx Arthritis: Yes (pt.'s and daughter effect left knee the most) Hx Dementia: No Additional medical history: Prior stroke. - Surgical History Past Surgical History?: Yes Hx Open Heart Surgery: Yes (bypass 2015) - Social History Smoking Status: Never Smoker Substance Use Type: None - Medications Home Medications: Home Medications Medication Instructions Recorded Confirmed Last Taken Type Aspirin BABY CHEW TAB 81 mg PO DAILY 02/29/20 02/29/20 Unknown History Atorvastatin 80 mg PO QHS 02/29/20 02/29/20 Unknown History Ibuprofen [Motrin] 800 mg PO DAILY PRN 02/29/20 02/29/20 Unknown History Om3/Dha/Epa/Cod Liver Oil/A/D3 1 each PO DAILY 02/29/20 02/29/20 Unknown History [Cod Liver Oil Softgel] amLODIPine [Norvasc] 5 mg PO DAILY 02/29/20 02/29/20 Unknown History carvediloL [Coreg] 12.5 mg PO BID 02/29/20 02/29/20 Unknown History predniSONE [Deltasone] 20 mg PO BID 02/29/20 02/29/20 Unknown History ED Neuro Physical Exam - General Limitations: No Limitations General appearance: alert, in no apparent distress Suspected Stroke: Yes - Head Head exam: Present: atraumatic, normocephalic, normal inspection - Eye Eye exam: Present: normal appearance, PERRL - ENT ENT exam: Present: normal exam, normal orophraynx, mucous membranes moist - Neck Neck exam: Present: normal inspection, full ROM. Absent: tenderness, meningismus, lymphadenopathy, thyromegaly - Respiratory Respiratory exam: Present: normal lung sounds bilaterally - Cardiovascular Cardiovascular Exam: Present: regular rate, normal rhythm, normal heart sounds - GI/Abdominal GI/Abdominal exam: Present: soft, normal bowel sounds. Absent: distended, tenderness, guarding, rebound, rigid, organomegaly, mass, bruit, pulsatile mass, hernia - Extremities Exam Extremities exam: Present: normal inspection, full ROM, normal capillary refill - Back Exam Back exam: Present: normal inspection. Absent: CVA tenderness (R), CVA tenderness (L) - Neurological Exam Neurological exam: Present: alert - NIHSS Assessment Interval: Baseline 1a. Level of Consciousness: alert/keenly responsive 1b. LOC Questions: answers no questions correctly 1c. LOC Commands: performs 1 task correctly 2. Best Gaze: normal 3. Visual: no visual loss 4. Facial Palsy: normal symmetrical movement 5b. Motor Arm Right: no drift 5a. Motor Arm Left: no drift 6a. Motor Leg Left: drift 6b. Motor Leg Right: drift 7. Limb Ataxia: absent 8. Sensory: no response/quadraplegic 9. Best Language: severe aphasia 10. Dysarthria: severe dysarthria 11. Extinction/Inattention: no abnormality Total Score: 11 Stroke Severity: Moderate Stroke - Psychiatric Psychiatric exam: Present: normal mood - Skin Skin exam: Present: warm, intact, normal color ED Course Vital Signs 03/14/20 03/14/20 03/14/20 16:36 16:45 16:46 Temperature 98.8 F Pulse Rate 88 105 H Respiratory 16 18 Rate Blood Pressure 158/80 158/60 158/80 Blood Pressure 158/60 [Left] O2 Sat by Pulse 98 96 Oximetry 03/14/20 03/14/20 03/14/20 17:00 17:16 17:30 Temperature Pulse Rate 97 H 96 H 94 H Respiratory 12 20 16 Rate Blood Pressure 153/103 154/96 170/87 Blood Pressure [Left] O2 Sat by Pulse 96 99 97 Oximetry 03/14/20 03/14/20 03/14/20 17:46 18:06 18:16 Temperature Pulse Rate 92 H 98 H 96 H Respiratory 13 15 16 Rate Blood Pressure 156/92 152/93 152/93 Blood Pressure [Left] O2 Sat by Pulse 98 66 L 99 Oximetry 03/14/20 03/14/20 03/14/20 18:30 18:46 18:57 Temperature Pulse Rate 99 H 94 H Respiratory 22 25 H 18 Rate Blood Pressure 152/93 152/93 Blood Pressure [Left] O2 Sat by Pulse 100 98 Oximetry 03/14/20 03/14/20 03/14/20 19:00 19:29 19:30 Temperature 98.2 F Pulse Rate 90 97 H 94 H Respiratory 17 22 13 Rate Blood Pressure 152/93 151/90 Blood Pressure 151/90 [Left] O2 Sat by Pulse 100 99 99 Oximetry 03/14/20 03/14/20 03/14/20 20:00 20:30 21:00 Temperature Pulse Rate 89 86 81 Respiratory 18 18 20 Rate Blood Pressure 151/90 151/90 151/90 Blood Pressure [Left] O2 Sat by Pulse 98 98 92 Oximetry 03/14/20 03/14/20 03/14/20 21:30 21:50 22:00 Temperature Pulse Rate 84 81 81 Respiratory 21 12 16 Rate Blood Pressure 151/90 151/90 151/90 Blood Pressure [Left] O2 Sat by Pulse 100 98 100 Oximetry 03/14/20 03/14/20 03/15/20 22:30 23:00 02:01 Temperature Pulse Rate 75 Respiratory 12 Rate Blood Pressure 151/90 151/90 151/90 Blood Pressure [Left] O2 Sat by Pulse 100 98 80 L Oximetry 03/15/20 03/15/20 03/15/20 02:13 02:20 02:23 Temperature 98 F Pulse Rate 86 98 H Respiratory 12 22 Rate Blood Pressure 151/90 151/90 Blood Pressure 125/87 [Left] O2 Sat by Pulse 79 L 98 98 Oximetry 03/15/20 03/15/20 03/15/20 02:30 02:40 02:50 Temperature Pulse Rate 82 77 78 Respiratory 11 L 14 15 Rate Blood Pressure 125/87 125/87 125/87 Blood Pressure [Left] O2 Sat by Pulse 91 100 96 Oximetry 03/15/20 03/15/20 03/15/20 03:00 03:19 03:27 Temperature 99.1 F 99.1 F Pulse Rate 83 85 84 Respiratory 17 18 Rate Blood Pressure 125/87 133/87 Blood Pressure 133/87 [Left] O2 Sat by Pulse 95 100 Oximetry - Lab Data Result diagrams: 03/14/20 17:37 03/14/20 17:37 Lab Results 03/14/20 03/14/20 03/14/20 Range/Units 17:37 17:37 17:37 WBC 5.0 (4.5-11.0) K/mm3 RBC 4.77 (3.65-5.03) M/mm3 Hgb 14.3 (10.1-14.3) gm/dl Hct 42.8 (30.3-42.9) % MCV 90 (79-97) fl MCH 30 (28-32) pg MCHC 33 (30-34) % RDW 14.6 (13.2-15.2) % Plt Count 221 (140-440) K/mm3 Lymph % (Auto) [place]ist [place] % (Auto) Florist Eos % (Auto) Florist Baso % (Auto) Florist Lymph # Florist Rush # Florist Eos # Florist Baso # Florist Seg Neutrophils % Florist Seg Neutrophils # Florist PT 13.4 (12.2-14.9) Sec. INR 1.04 (0.87-1.13) APTT 28.4 (24.2-36.6) Sec. Thrombin Time 16.0 (15.1-19.6) Sec. Sodium 133 L (137-145) mmol/L Potassium 3.5 L (3.6-5.0) mmol/L Chloride 91.7 L (98-107) mmol/L Carbon Dioxide 28 (22-30) mmol/L Anion Gap 17 mmol/L BUN 20 H (7-17) mg/dL Creatinine 1.0 (0.7-1.2) mg/dL Estimated GFR > 60 ml/min BUN/Creatinine Ratio 20 % Glucose 198 H (65-100) mg/dL Calcium 9.3 (8.4-10.2) mg/dL Total Creatine Kinase 113 (30-135) units/L CK-MB (CK-2) 1.3 (0.0-4.0) ng/mL CK-MB (CK-2) Rel Index 1.1 (0-4) Troponin T < 0.010 (0.00-0.029) ng/mL - Medical Decision Making Patient is 69 years old female with history of hypertension and stroke. Patient brought to the emergency room via EMS from home for evaluation of slurred speech and inability to walk for the last 2 days. Patient was seen here 2 weeks ago for similar presentation patient was transferred to [facility] because of the finding of multiple vertebral arteries stenosis. I discussed the patient with her son at [phone]. He stated that after his mother was discharged from [facility] she was doing well until 2 days ago when she started having difficulty speaking and drooling. She she also started having difficulty walking. According to his report he stated that they discussed with them the risk of surgery and the duct prefer not to do the surgery. He said they follow-up with her primary care physician 2 days after discharge from [place] and she was doing fine at that time and they order her some Benadryl to help with sleep. During my assessment patient with significant slurred speech and dysarthria. Patient is also unable to lift up her both right and left legs. Patient seen and examined by stroke tele-neurologist Dr. Wood, he advised patient to be admitted for MRI and further work-up. I discussed the patient with Dr. Anderson, he stated that he is coming down to see the patient. Critical care attestation.: If time is entered above; I have spent that time in minutes in the direct care of this critically ill patient, excluding procedure time. ED Disposition Clinical Impression: Stroke Disposition: DC-01 TO HOME OR SELFCARE Is pt being admited?: Yes Condition: Stable
[2020-03-14 18:08] LABS: Hematocrit 42.8 % (30.3-42.9); Hemoglobin 14.3 gm/dl (10.1-14.3); Mean Corpuscular HGB Conc 33 % (30-34); Mean Corpuscular Volume 90 fl (79-97); Platelet Count 221 K/mm3 (140-440); Red Blood Count 4.77 M/mm3 (3.65-5.03); Red Cell Distribution Width 14.6 % (13.2-15.2)
[2020-03-14 18:09] LABS: Creatine Kinase MB 1.3 ng/mL (0.0-4.0)
[2020-03-14 18:12] LABS: BUN/Creatinine Ratio 20; Blood Urea Nitrogen 20 mg/dL (7-17); Calcium 9.3 mg/dL (8.4-10.2); Hemolysis Index 23
[2020-03-14 18:16] LABS: INR 1.04 (0.87-1.13)
[2020-03-14 18:22] LABS: Partial Thromboplastin Time 28.4 Sec. (24.2-36.6)
--- NOTE | 2020-03-14 18:40 | Cat Scan Report ---
CT head/brain wo con INDICATION / CLINICAL INFORMATION: 69 years Female; MAIN. TECHNIQUE: Routine CT head without contrast. All CT scans at this location are performed using CT dos e reduction for ALARA by means of automated exposure control. COMPARISON: 02/29/2020 FINDINGS: BRAIN / INTRACRANIAL CONTENTS: Old, small branch MCA/MANAGER REPORTING infarct seen in the posterior cerebral hemis phere on the left-findings are not significantly changed from prior exam. Old, small branch infarcts are seen peripherally in the left frontal lobe as well, one of which involves the precentral gyrus on the left. These findings are not significantly changed from prior. New from prior is suggestion of low-density areas in the middle cerebellar peduncles bilaterally. Dif fusion imaging by MRI may be of benefit. Given the fact that there are multiple vascular distribution s involved between: New findings, embolic phenomenon should be considered. There is suggestion of sara e component of pontine disease as [id number] without diffusion imaging. Otherwise, no acute hemorrhage, mass effect, midline shift, hydrocephalus, or acute, large territori al infarct. No chronic infarct or atrophy appreciated. No significant white matter abnormality. CRANIOCERVICAL JUNCTION: No significant abnormality. ORBITS: No significant abnormality of visualized orbits. SINUSES / MASTOIDS: Minimal mucosal thickening seen in the ethmoids. ADDITIONAL FINDINGS: None. IMPRESSION: 1. Acute/subacute areas of ischemia suggested in the white matter of the cerebellar hemispheres and p erhaps the rajendra - new from prior exam. Diffusion imaging by MRI may be of benefit. 2. Otherwise, no mass, hemorrhage, hydrocephalus, or acute, large territorial infarct. Signer Name: Yvan Vick MD, III Signed: 03/14/2020 6:36 PM Workstation Name: [id number]
--- NOTE | 2020-03-14 18:50 | Emergency Department Report ---
ED Neuro Deficit HPI - General Chief Complaint: Neuro Symptoms/Deficit Stated Complaint: WEAKNESS Time Seen by Provider: 03/14/20 17:05 Source: family, EMS Mode of arrival: Stretcher Limitations: No Limitations - History of Present Illness Initial Comments: [employer] Tele[facility]urology Consult Services Stat Consult Date of Service: 03/14/2020 17:28:39 Impression: Rule Out Acute Ischemic Stroke Encephalopathy Comments/Sign-Out: Evaluate for extension of previous stroke, yanick since these per notes were associated with intracranial artery stenotic disease. Evaluate also for recrudescence of stroke symptoms from toxic metabolic disturbance CT HEAD: Reviewed Acute/subacyte ischemia in the cerbellar hemispheres and ?rajendra Metrics: [employer] Notification Time: 03/14/2020 17:27:34 Stamp Time: 03/14/2020 17:28:39 Callback Response Time: 03/14/2020 17:33:35 Video Start Time: 03/14/2020 18:45:23 Video End Time: 03/14/2020 18:45:24 Our recommendations are outlined below. Recommendations: Antiplatelet Therapy CTA head and neck if patients renal function permits ortherwise MRA head and neck Imaging Studies: MRI Head Without Contrast Echocardiogram - Transthoracic Echocardiogram Therapies: Physical Therapy, Occupational Therapy, Speech Therapy Assessment When Applicable Other WorkUp: Infectious/metabolic workup per primary team Check an ammonia level Check B12 level Check TSH Check Urinalysis Disposition: Neurology Follow Up Recommended Sign Out: Discussed with Emergency Department Provider Chief Complaint: slurred speech, drooling, unable to walk History of Present Illness: Patient is a 69 year old Female. pmhx: HTN, stroke for past 2 days she was noted to have slurred speech, drooling, unable to walk. Pt was recently discharged for an OSH for the same complaints, and was found to have vertebral artery stenosis. It was noted by ED physician that pt was unable to raise b/l LE, this seems to have resolved at the time of eval for me, however pt was noted to have significant dysartria and expressive aphasia Examination: 1A: Level of Consciousness - Alert; keenly responsive + 0 1B: Ask Month and Age - Both Questions Right + 0 1C: Blink Eyes & Squeeze Hands - Performs Both Tasks + 0 2: Test Horizontal Extraocular Movements - Normal + 0 3: Test Visual Street - No Visual Loss + 0 4: Test Facial Palsy (Use Grimace if Obtunded) - Normal symmetry + 0 5A: Test Left Arm Motor Drift - No Drift for 10 Seconds + 0 5B: Test Right Arm Motor Drift - No Drift for 10 Seconds + 0 6A: Test Left Leg Motor Drift - No Drift for 5 Seconds + 0 6B: Test Right Leg Motor Drift - No Drift for 5 Seconds + 0 7: Test Limb Ataxia (FNF/Heel-Platt) - No Ataxia + 0 8: Test Sensation - Normal; No sensory loss + 0 9: Test Language/Aphasia - Severe Aphasia: Fragmentary Expression, Inference Needed, Cannot Identify Materials + 2 10: Test Dysarthria - Mild-Moderate Dysarthria: Slurring but can be understood + 1 11: Test Extinction/Inattention - No abnormality + 0 NIHSS Score: 3 Due to the immediate potential for life-threatening deterioration due to underlying acute neurologic illness, I spent 35 minutes providing critical care. This time includes time for face to face visit via telemedicine, review of medical records, imaging studies and discussion of findings with providers, the patient and/or family. Dr Jennifer Wood [employer] Case [id number] Location: speech, dysarthria, left leg, right leg Place: home - Related Data Home Medications: Home Medications Medication Instructions Recorded Confirmed Last Taken Aspirin BABY CHEW TAB 81 mg PO DAILY 02/29/20 02/29/20 Unknown Atorvastatin 80 mg PO QHS 02/29/20 02/29/20 Unknown Ibuprofen [Motrin] 800 mg PO DAILY PRN 02/29/20 02/29/20 Unknown Om3/Dha/Epa/Cod Liver Oil/A/D3 1 each PO DAILY 02/29/20 02/29/20 Unknown [Cod Liver Oil Softgel] amLODIPine [Norvasc] 5 mg PO DAILY 02/29/20 02/29/20 Unknown carvediloL [Coreg] 12.5 mg PO BID 02/29/20 02/29/20 Unknown predniSONE [Deltasone] 20 mg PO BID 02/29/20 02/29/20 Unknown Allergies/Adverse Reactions: Allergies Allergy/AdvReac Type Severity Reaction Status Date / Time No Known Allergies Allergy Unverified 02/21/16 12:44 ED Review of Systems ROS: Stated complaint: WEAKNESS Other details as noted in HPI Comment: All other systems reviewed and negative ED Past Medical Hx - Past Medical History Previous Medical History?: Yes Hx Hypertension: Yes Hx CVA: No Hx Arthritis: Yes (pt.'s and daughter effect left knee the most) Hx Dementia: No Additional medical history: Prior stroke. - Surgical History Past Surgical History?: Yes Hx Open Heart Surgery: Yes (bypass 2015) - Social History Smoking Status: Never Smoker Substance Use Type: None - Medications Home Medications: Home Medications Medication Instructions Recorded Confirmed Last Taken Type Aspirin BABY CHEW TAB 81 mg PO DAILY 02/29/20 02/29/20 Unknown History Atorvastatin 80 mg PO QHS 02/29/20 02/29/20 Unknown History Ibuprofen [Motrin] 800 mg PO DAILY PRN 02/29/20 02/29/20 Unknown History Om3/Dha/Epa/Cod Liver Oil/A/D3 1 each PO DAILY 02/29/20 02/29/20 Unknown History [Cod Liver Oil Softgel] amLODIPine [Norvasc] 5 mg PO DAILY 02/29/20 02/29/20 Unknown History carvediloL [Coreg] 12.5 mg PO BID 02/29/20 02/29/20 Unknown History predniSONE [Deltasone] 20 mg PO BID 02/29/20 02/29/20 Unknown History ED Neuro Physical Exam - General Limitations: No Limitations (NA) General appearance: alert, in no apparent distress Suspected Stroke: Yes - Eye Eye exam: Present: EOMI - Rectal Rectal exam: Present: deferred - Extremities Exam Extremities exam: Present: normal inspection - Back Exam Back exam: Present: normal inspection - Neurological Exam Neurological exam: Present: alert - NIHSS Assessment Interval: Baseline 1a. Level of Consciousness: alert/keenly responsive 1b. LOC Questions: answers both correctly 1c. LOC Commands: performs tasks correctly 2. Best Gaze: normal 3. Visual: no visual loss 4. Facial Palsy: normal symmetrical movement 5b. Motor Arm Right: no drift 5a. Motor Arm Left: no drift 6a. Motor Leg Left: no drift 6b. Motor Leg Right: no drift 7. Limb Ataxia: absent 8. Sensory: normal 9. Best Language: severe aphasia 10. Dysarthria: mild/moderate dysarthria 11. Extinction/Inattention: no abnormality Total Score: 3 Stroke Severity: Minor Stroke - Psychiatric Psychiatric exam: Present: normal affect - Skin Skin exam: Present: warm ED Course Vital Signs 03/14/20 16:45 Temperature 98.8 F Pulse Rate 88 Respiratory 16 Rate Blood Pressure 158/60 Blood Pressure 158/60 [Left] O2 Sat by Pulse 98 Oximetry - Lab Data Result diagrams: 03/14/20 17:37 03/14/20 17:37 Lab Results 03/14/20 03/14/20 03/14/20 Range/Units 17:37 17:37 17:37 WBC 5.0 (4.5-11.0) K/mm3 RBC 4.77 (3.65-5.03) M/mm3 Hgb 14.3 (10.1-14.3) gm/dl Hct 42.8 (30.3-42.9) % MCV 90 (79-97) fl MCH 30 (28-32) pg MCHC 33 (30-34) % RDW 14.6 (13.2-15.2) % Plt Count 221 (140-440) K/mm3 Lymph % (Auto) [facility] [place] % (Auto) [facility] Eos % (Auto) [facility] Baso % (Auto) [facility] Lymph # [facility] [place] # [facility] Eos # [facility] Baso # [facility] Seg Neutrophils % [facility] Seg Neutrophils # [facility] PT 13.4 (12.2-14.9) Sec. INR 1.04 (0.87-1.13) APTT 28.4 (24.2-36.6) Sec. Thrombin Time 16.0 (15.1-19.6) Sec. Sodium 133 L (137-145) mmol/L Potassium 3.5 L (3.6-5.0) mmol/L Chloride 91.7 L (98-107) mmol/L Carbon Dioxide 28 (22-30) mmol/L Anion Gap 17 mmol/L BUN 20 H (7-17) mg/dL Creatinine 1.0 (0.7-1.2) mg/dL Estimated GFR > 60 ml/min BUN/Creatinine Ratio 20 % Glucose 198 H (65-100) mg/dL Calcium 9.3 (8.4-10.2) mg/dL Total Creatine Kinase 113 (30-135) units/L CK-MB (CK-2) 1.3 (0.0-4.0) ng/mL CK-MB (CK-2) Rel Index 1.1 (0-4) Troponin T < 0.010 (0.00-0.029) ng/mL Critical care time in (mins) excluding proc time.: 35 Critical care attestation.: If time is entered above; I have spent that time in minutes in the direct care of this critically ill patient, excluding procedure time. ED Disposition Clinical Impression: Stroke Disposition: DC-01 TO HOME OR SELFCARE Is pt being admited?: Yes Referrals: PRIMARY CARE, [Primary Care Provider] - 3-5 Days
[2020-03-15] MEDS ORDERED: IBUPROFEN 800 MG TAB PO PRN (00:25)
[2020-03-15] MEDS ORDERED: ACETAMINOPHEN 325 MG TAB PO PRN (00:31)
[2020-03-15] MEDS ORDERED: ONDANSETRON 4 MG/2 ML INJ IV PRN (00:31)
[2020-03-15] MEDS ORDERED: oxyCODONE /ACETAMINOPHEN 5-325MG TAB PO PRN (00:31)
[2020-03-15] MEDS ORDERED: METOCLOPRAMIDE 10 MG/2 ML INJ IV PRN (00:31)
--- NOTE | 2020-03-15 00:43 | History and Physical Report ---
History of Present Illness Date of examination: 03/14/20 Date of admission: 03/14/20 19:01 Chief complaint: Severe weakness and difficulty talking for 2 days History of present illness: 69-year-old -[place] female with history of hypertension and recent stroke. Patient has difficulty walking for the last 2 days. No lateralization mentioned. Patient says he has weakness in both the lower extremities. Patient also has difficulty talking and has severe dysarthria 3. Dysarthria. Patient was admitted to [facility] with bradycardia on February 28 after being tra nsferred from here and very extensive work-up and care also. Surgery was offered for occlusions in the vertebrobasilar surgery and they refused. Patient has apparently been doing well for the last 3 weeks till 2 days ago. Now has recurrent symptoms. The main symptom is weakness in both the lower extremities which is resolved while in the emergency room. Patient continues to have dysarthria. - Past Medical History Previous Medical History?: Yes Hypertension: Yes CVA Hx Arthritis: Yes (pt.'s and daughter effect left knee the mos Additional medical history: Prior stroke. Surgical History Past Surgical History?: Yes Hx Open Heart Surgery: Yes (bypass 2015) - Social History Smoking Status: Never Smoker Substance Use Type: None family history Htn - Medications Home Medications: Home Medications Medication Instructions Recorded Confirmed Last Taken Type Aspirin BABY CHEW TAB 81 mg PO DAILY 02/29/20 02/29/20 Unknown History Atorvastatin 80 mg PO QHS 02/29/20 02/29/20 Unknown History Ibuprofen [Motrin] 800 mg PO DAILY PRN 02/29/20 02/29/20 Unknown History Om3/Dha/Epa/Cod Liver Oil/A/D3 1 each PO DAILY 02/29/20 02/29/20 Unknown History [Cod Liver Oil Softgel] amLODIPine [Norvasc] 5 mg PO DAILY 02/29/20 02/29/20 Unknown History carvediloL [Coreg] 12.5 mg PO BID 02/29/20 02/29/20 Unknown History predniSONE [Deltasone] 20 mg PO BID 02/29/20 02/29/20 Unknown History Review of Systems ROS: Constitutional no weight loss or weight gain no fever or chills HEENT no sore throat no post nasal drip no diplopia Neck no neck stiffness no lymph gland enlargement Chest and lungs no shortness of breath cough or wheezing CVS no chest pain no diaphoresis no palpitations GI no nausea no vomiting no diarrhea Genitourinary system no dysuria no flank pain Musculoskeletal system no muscle pains no joint pains [employer] severe dysarthria and difficulty walking Skin no rash no itching Psychiatric no depression no homicidal or suicidal tendencies Hematologic no lymphedema or bruising Endocrine no polydipsia no polyuria no cold intolerance no heat intolerance Medications and Allergies Allergies Allergy/AdvReac Type Severity Reaction Status Date / Time No Known Allergies Allergy Unverified 02/21/16 12:44 Home Medications Medication Instructions Recorded Confirmed Last Taken Type Aspirin BABY CHEW TAB 81 mg PO DAILY 02/29/20 02/29/20 Unknown History Atorvastatin 80 mg PO QHS 02/29/20 02/29/20 Unknown History Ibuprofen [Motrin] 800 mg PO DAILY PRN 02/29/20 02/29/20 Unknown History Om3/Dha/Epa/Cod Liver Oil/A/D3 1 each PO DAILY 02/29/20 02/29/20 Unknown History [Cod Liver Oil Softgel] amLODIPine [Norvasc] 5 mg PO DAILY 02/29/20 02/29/20 Unknown History carvediloL [Coreg] 12.5 mg PO BID 02/29/20 02/29/20 Unknown History predniSONE [Deltasone] 20 mg PO BID 02/29/20 02/29/20 Unknown History Exam - Constitutional Vitals: Temp Pulse Resp BP Pulse Ox 98.2 F 84 21 151/90 100 03/14/20 19:29 03/14/20 21:30 03/14/20 21:30 03/14/20 21:30 03/14/20 21:30 General appearance: Present: no acute distress, well-nourished - EENT Eyes: Present: PERRL ENT: hearing intact, clear oral mucosa - Neck Neck: Present: supple, normal ROM - Respiratory Respiratory effort: normal Respiratory: bilateral: CTA - Cardiovascular Heart rate: 78 Rhythm: regular Heart Sounds: Present: S1 & S2. Absent: rub, click - Extremities Extremities: pulses symmetrical, No edema Peripheral Pulses: within normal limits - Abdominal General gastrointestinal: Present: soft, non-tender, non-distended, normal bowel sounds Female genitourinary: Present: normal - Integumentary Integumentary: Present: clear, warm, dry - Musculoskeletal Musculoskeletal: generalized weakness (Patient has power of 4 x 5 on both lower extremities) - Psychiatric Psychiatric: appropriate mood/affect, intact judgment & insight - Neurologic Neurologic: CNII-XII intact, moves all extremities, other (Severe dysarthria present) HEART Score - HEART Score Troponin: Troponin T < 0.010 ng/mL (0.00-0.029) 03/14/20 17:37 Results - Labs CBC & Chem 7: 03/14/20 17:37 03/14/20 17:37 Labs: Laboratory Last Values WBC 5.0 K/mm3 (4.5-11.0) 03/14/20 17:37 RBC 4.77 M/mm3 (3.65-5.03) 03/14/20 17:37 Hgb 14.3 gm/dl (10.1-14.3) 03/14/20 17:37 Hct 42.8 % (30.3-42.9) 03/14/20 17:37 MCV 90 fl (79-97) 03/14/20 17:37 MCH 30 pg (28-32) 03/14/20 17:37 MCHC 33 % (30-34) 03/14/20 17:37 RDW 14.6 % (13.2-15.2) 03/14/20 17:37 Plt Count 221 K/mm3 (140-440) 03/14/20 17:37 Lymph % (Auto) [employer] Specialist 03/14/20 17:37 [place] % (Auto) [employer] Specialist 03/14/20 17:37 Eos % (Auto) [employer] Specialist 03/14/20 17:37 Baso % (Auto) [employer] Specialist 03/14/20 17:37 Lymph # [employer] 03/14/20 17:37 [place] # [employer] 03/14/20 17:37 Eos # [employer] 03/14/20 17:37 Baso # [employer] 03/14/20 17:37 Seg Neutrophils % [employer] 03/14/20 17:37 Seg Neutrophils # [employer] 03/14/20 17:37 PT 13.4 Sec. (12.2-14.9) 03/14/20 17:37 INR 1.04 (0.87-1.13) 03/14/20 17:37 APTT 28.4 Sec. (24.2-36.6) 03/14/20 17:37 Thrombin Time 16.0 Sec. (15.1-19.6) 03/14/20 17:37 Sodium 133 mmol/L (137-145) L 03/14/20 17:37 Potassium 3.5 mmol/L (3.6-5.0) L 03/14/20 17:37 Chloride 91.7 mmol/L (98-107) L 03/14/20 17:37 Carbon Dioxide 28 mmol/L (22-30) 03/14/20 17:37 Anion Gap 17 mmol/L 03/14/20 17:37 BUN 20 mg/dL (7-17) H 03/14/20 17:37 Creatinine 1.0 mg/dL (0.7-1.2) 03/14/20 17:37 Estimated GFR > 60 ml/min 03/14/20 17:37 BUN/Creatinine Ratio 20 % 03/14/20 17:37 Glucose 198 mg/dL (65-100) H 03/14/20 17:37 Calcium 9.3 mg/dL (8.4-10.2) 03/14/20 17:37 Total Creatine Kinase 113 units/L (30-135) 03/14/20 17:37 CK-MB (CK-2) 1.3 ng/mL (0.0-4.0) 03/14/20 17:37 CK-MB (CK-2) Rel Index 1.1 (0-4) 03/14/20 17:37 Troponin T < 0.010 ng/mL (0.00-0.029) 03/14/20 17:37 Short CBC 03/14/20 Range/Units 17:37 WBC 5.0 (4.5-11.0) K/mm3 Hgb 14.3 (10.1-14.3) gm/dl Hct 42.8 (30.3-42.9) % Plt Count 221 (140-440) K/mm3 BMP 03/14/20 17:37 Sodium 133 L Potassium 3.5 L Chloride 91.7 L Carbon Dioxide 28 BUN 20 H Creatinine 1.0 Glucose 198 H Calcium 9.3 Cardiac Enzymes 03/14/20 Range/Units 17:37 Total Creatine Kinase 113 (30-135) units/L CK-MB (CK-2) 1.3 (0.0-4.0) ng/mL Troponin T < 0.010 (0.00-0.029) ng/mL - Imaging and Cardiology EKG: report reviewed CT Scan - head: report reviewed Imaging and Cardiology: From previous admission around February 29, 2020 Neck CTA Very low/almost no flow visualized in the intracranial vertebrobasilar system likely on a chronic basis. There is some opacification of the superior basilar artery from collateralization from the communicating arteries and the posterior cerebral arteries are opacified Completely occluded left cervical ICA. The intracranial left ICA is reconstituted from collateral vessels. This indicates right ICA swallowing most of the anterior circulation as well as possible posterior circulation. There is an approximately 75 to 80% stenosis of the proximal right thyroid pole ICA. Which is simply new clinically in the setting of other arterial occlusions. Diminished flow in the left MCA branches without focal large vessel occlusion. The left vertebral artery ends in the left PICA. The right vertebral artery becomes occluded in the mid cervical spine. There are multiple flow-limiting stenosis and was opacified vertebral arteries in the neck .Head CTA Same findings as the neck CTA with completely occluded left cervical ICA and collaterals. Also very low/almost no flow visualized in the intracranial vertebrobasilar system likely on a chronic basis. Head CT No acute findings no appreciable acute infarction Chronic small infarcts in the left cerebrum. Head CT from 03/14/2020 Acute/subacute areas of ischemia suggested in the white matter of the cerebellar hemispheres and perhaps the rajendra new from prior exam Diffusion imaging by MRI may be of benefit Otherwise no mass hemorrhage hydrocephalus or acute lack lack daily or territorial infarction. Nunez/IV: Voiding Method Diaper IV Catheter Type [Left INT / Saline Lock Antecubital] Assessment and Plan Advance Directives: Yes - Patient Problems (1) Acute CVA (cerebrovascular accident) Current Visit: Yes Status: Acute Plan to address problem: Probably a new stroke involving the cerebellum. There is a definite new findings in the new CT of the head Cerebellum is affected Which may explain the dysarthria and the ataxia Neurology consult requested Patient initiated on CVA protocol (2) HTN (hypertension) Current Visit: No Status: Chronic Qualifiers: Plan to address problem: Continue antihypertensives (3) T2DM (type 2 diabetes mellitus) Current Visit: Yes Status: Chronic Qualifiers: Diabetes mellitus watermaster insulin use: unspecified watermaster insulin use status Plan to address problem: Borderline A1c is 5.8 Glucose levels are around 170 Patient started on metformin 500 twice a day (4) DVT prophylaxis Current Visit: No Status: Acute Plan to address problem: Lovenox 40 mg subcu daily and GI prophylaxis
[2020-03-15] MEDS: SODIUM CHLORIDE 0.9% 1000 ML 1,000 ML IV SCH (01:10)
[2020-03-15] MEDS ORDERED: SODIUM CHLORIDE 0.9% 1000 ML 1,000 ML ONE (02:27)
[2020-03-15] MEDS: HYDROmorphone 1 MG/1 ML INJ IV PRN ×2 (08:40→12:44)
[2020-03-15] MEDS ORDERED: ASPIRIN 325 MG TAB PO SCH (10:00)
--- NOTE | 2020-03-15 11:43 | Progress Note ---
Assessment and Plan - Patient Problems (1) Acute CVA (cerebrovascular accident) Current Visit: Yes Status: Acute Plan to address problem: - MRI brain shows bilateral cerebellar, pontine, and left subortical acute infarcts, CT head show bilateral cerebellar and pontine infarcts per Neurology -Neuro Recommendations: -Dual antiplatelet therapy with ASA 81 daily and Plavix 75 mg daily for 30 days, after which Plavix can be stopped and continuing statin therapy -SBP control at 140-160 -CTA pending -Continue Statin -Neuro checks every shift (2) HTN (hypertension) Current Visit: No Status: Chronic Qualifiers: Plan to address problem: -Neurology recommend SBP goal of 140-160 to allow for adequate blood flow through the patent right internal carotid artery -optimize BP control (3) DVT prophylaxis Current Visit: No Status: Acute Plan to address problem: -subq heparin Subjective Date of service: 03/15/20 Interval history: Patient is awake, alert and orientated to self and location. She slurred speech with dysarthia at the time of my examination. MRI head completed, CTA pending Objective - Constitutional Vitals: Vital Signs - 12hr 03/15/20 03/15/20 03/15/20 02:01 02:13 02:20 Temperature Pulse Rate 86 Respiratory 12 Rate Blood Pressure 151/90 151/90 151/90 Blood Pressure [Left] O2 Sat by Pulse 80 L 79 L 98 Oximetry 03/15/20 03/15/20 03/15/20 02:23 02:30 02:40 Temperature 98 F Pulse Rate 98 H 82 77 Respiratory 22 11 L 14 Rate Blood Pressure 125/87 125/87 Blood Pressure 125/87 [Left] O2 Sat by Pulse 98 91 100 Oximetry 03/15/20 03/15/20 03/15/20 02:50 03:00 03:19 Temperature 99.1 F 99.1 F Pulse Rate 78 83 85 Respiratory 15 17 18 Rate Blood Pressure 125/87 125/87 133/87 Blood Pressure 133/87 [Left] O2 Sat by Pulse 96 95 100 Oximetry 03/15/20 03/15/20 03/15/20 03:27 08:40 11:00 Temperature 98.7 F Pulse Rate 84 79 79 Respiratory 20 Rate Blood Pressure 141/80 Blood Pressure [Left] O2 Sat by Pulse 98 Oximetry General appearance: Present: well-nourished - EENT Eyes: PERRL, EOM intact ENT: hearing intact - Neck Neck: supple, normal ROM - Respiratory Respiratory effort: normal Respiratory: bilateral: CTA (dimished at bases) - Cardiovascular Rhythm: regular Heart Sounds: Present: S1 & S2. Absent: gallop, systolic murmur, diastolic murmur Extremities: pulses intact, pulses symmetrical, No edema, normal temperature, normal color - Gastrointestinal General gastrointestinal: Present: soft, non-tender, non-distended, normal bowel sounds - Integumentary Integumentary: clear, warm, dry - Musculoskeletal Musculoskeletal: strength equal bilaterally - Neurologic Neurologic: CNII-XII intact - Psychiatric Psychiatric: cooperative - Allied health notes Allied health notes reviewed: nursing - Labs CBC & Chem 7: 03/14/20 17:37 03/14/20 17:37 Labs: Abnormal lab results 03/14/20 Range/Units 17:37 Sodium 133 L (137-145) mmol/L Potassium 3.5 L (3.6-5.0) mmol/L Chloride 91.7 L (98-107) mmol/L BUN 20 H (7-17) mg/dL Glucose 198 H (65-100) mg/dL HEART Score - HEART Score Troponin: Troponin T < 0.010 ng/mL (0.00-0.029) 03/14/20 17:37
--- NOTE | 2020-03-15 12:21 | Vascular Lab Report ---
BILATERAL CAROTID DOPPLER ULTRASOUND INDICATION : stroke TECHNIQUE: Grayscale and color Doppler imaging performed through the neck. COMPARISON: None FINDINGS: Right: There is moderate noncalcified plaques at the bifurcation. Peak systolic velocity in the CCA is 47 cm/s with end-diastolic velocity of 18 cm/s. Peak systolic velocity in the proximal ICA is 165 cm/s with end-diastolic velocity of 65 cm/s. ICA to CCA ratio is greater than 2. No flow is identifi ed in the right vertebral artery suggesting occlusion. There is antegrade flow in the right external carotid artery. Left: There is moderate to severe calcific plaques are noted at the bifurcation. Peak systolic veloci ty in the CCA is 53 cm/s with end-diastolic velocity of 13 cm/s. No flow is identified in the left IC A suggesting complete occlusion. There is antegrade flow in the ECA and the vertebral artery. 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 Doppler velocities indicate 50-79% stenosis in the proximal right ICA. Signer Name: Ben Tovar Jr, MD Signed: 03/15/2020 12:17 PM Workstation Name: [id number]
[2020-03-15] MEDS: ASPIRIN 81 MG TAB CHEW PO SCH (12:41)
[2020-03-15] MEDS: FAMOTIDINE 20 MG TAB PO SCH ×2 (12:41→21:52)
[2020-03-15] MEDS: predniSONE 20 MG TAB PO SCH ×2 (12:41→21:52)
[2020-03-15] MEDS: amLODIPine 5 MG TAB PO SCH (12:42)
[2020-03-15] MEDS: carvediloL 12.5 MG TAB PO SCH ×2 (12:42→21:51)
--- NOTE | 2020-03-15 15:13 | Consultation ---
History of Present Illness Consult date: 03/15/20 Reason for Consult: Slurred speech, inability to walk Chief complaint: Slurred speech, inability to walk History of present illness: Patient is a 69 y/o woman w/ a h/o HTN, CAD s/p CABG, HLD, CVA w/ no residual deficits. Patient presented yesterday with symptoms that started 3 days ago, described as slurred speech and difficulty walking. 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 Patient reportedly did not undergo a recanalization procedure at [place]. She takes aspirin at home, and states that she has been compliant with this. Past History Past Medical History: other (h/o HTN, CAD s/p CABG, HLD, CVA w/ no residual deficits) Past Surgical History: CABG Social history: no significant social history Family history: hypertension Medications and Allergies Allergies Allergy/AdvReac Type Severity Reaction Status Date / Time No Known Allergies Allergy Unverified 02/21/16 12:44 Home Medications Medication Instructions Recorded Confirmed Last Taken Type Aspirin BABY CHEW TAB 81 mg PO DAILY 02/29/20 02/29/20 Unknown History Atorvastatin 80 mg PO QHS 02/29/20 02/29/20 Unknown History Ibuprofen [Motrin] 800 mg PO DAILY PRN 02/29/20 02/29/20 Unknown History Om3/Dha/Epa/Cod Liver Oil/A/D3 1 each PO DAILY 02/29/20 02/29/20 Unknown History [Cod Liver Oil Softgel] amLODIPine [Norvasc] 5 mg PO DAILY 02/29/20 02/29/20 Unknown History carvediloL [Coreg] 12.5 mg PO BID 02/29/20 02/29/20 Unknown History predniSONE [Deltasone] 20 mg PO BID 02/29/20 02/29/20 Unknown History Active Meds: Active Medications Acetaminophen (Tylenol) 650 mg PO Q4H PRN PRN Reason: Pain MILD(1-3)/Fever >100.5/POSADAS Amlodipine Besylate (Amlodipine) 5 mg PO DAILY [facility] Last Admin: 03/15/20 12:42 Dose: Not Given Documented by: Aspirin (Baby Aspirin) 81 mg PO DAILY [facility] Last Admin: 03/15/20 12:41 Dose: 81 mg Documented by: Atorvastatin Calcium (Lipitor) 80 mg PO QHS [facility] Carvedilol (Coreg) 12.5 mg PO BID [facility] Last Admin: 03/15/20 12:42 Dose: Not Given Documented by: Famotidine (Pepcid) 20 mg PO BID [facility] Last Admin: 03/15/20 12:41 Dose: 20 mg Documented by: Hydromorphone HCl (Dilaudid) 0.5 mg IV Q3H PRN PRN Reason: Pain , Severe (7-10) Last Admin: 03/15/20 12:44 Dose: 0.5 mg Documented by: Sodium Chloride (Nacl 0.9% 1000 Ml) 1,000 mls @ 75 mls/hr IV DIRECT [facility] Last Admin: 03/15/20 01:10 Dose: 75 mls/hr Documented by: Ibuprofen (Ibuprofen) 800 mg PO DAILY PRN PRN Reason: Pain, Moderate (4-6) Metoclopramide HCl (Reglan) 10 mg IV Q6H PRN PRN Reason: Nausea And Vomiting Ondansetron HCl (Zofran) 4 mg IV Q8H PRN PRN Reason: Nausea And Vomiting Oxycodone/Acetaminophen (Percocet 5/325) 1 tab PO Q6H PRN PRN Reason: Pain, Moderate (4-6) Prednisone (Deltasone) 20 mg PO BID [facility] Last Admin: 03/15/20 12:41 Dose: 20 mg Documented by: Sodium Chloride (Sodium Chloride Flush Syringe 10 Ml) 10 ml IV BID [facility] Last Admin: 03/15/20 12:42 Dose: 10 ml Documented by: Sodium Chloride (Sodium Chloride Flush Syringe 10 Ml) 10 ml IV PRN PRN PRN Reason: LINE FLUSH Review of Systems All systems: negative Neurological: weakness, change in speech Physical Examination - Vital Signs Vital Signs: Vital Signs BP 158/80 03/14/20 16:36 - Physical Exam Narrative exam: Patient is alert, awake, oriented x4, follows complex commands. Noted to have significant dysarthria. No aphasia noted. EOMI, VFF, tongue midline, bilaterally intact to LT, no facial weakness noted. 5/5 strength in all extremities. Bilaterally intact light touch. Bilaterally noted to have dysmetria with FTN and HTS - Level of Consciousness 1a. Level of Consciousness: alert/keenly responsive - LOC Questions 1b. LOC Questions: answers both correctly - LOC Command 1c. LOC Commands: performs tasks correctly - Best Gaze 2. Best Gaze: normal - Visual 3. Visual: no visual loss - Facial Palsy 4. Facial Palsy: normal symmetrical movement - Motor Arm 5a. Motor Arm Left: no drift 5b. Motor Arm Right: no drift - Motor Leg 6a. Motor Leg Left: no drift 6b. Motor Leg Right: no drift - Limb Ataxia 7. Limb Ataxia: present 2 limbs - Sensory 8. Sensory: normal - Best Language 9. Best Language: no aphasia - Dysarthria 10. Dysarthria: severe dysarthria - Extinction and Inattention 11. Extinction/Inattention: no abnormality - Scoring Total Score: 4 Stroke Severity: Minor Stroke Results - Laboratory Findings CBC and BMP: 03/14/20 17:37 03/14/20 17:37 Abnormal Lab Findings: Abnormal Labs 03/14/20 17:37 Sodium 133 L Potassium 3.5 L Chloride 91.7 L BUN 20 H Glucose 198 H Assessment and Plan Patient is a 69 y/o woman w/ a h/o HTN, CAD s/p CABG, HLD, CVA w/ no residual deficits, who p/w slurred speech and difficulty walking. According to the patient's clinical findings, she has had an acute ischemic stroke. The etiology is likely due to hypoperfusion, as previous CTA head/neck done in February showed likely chronic occlusion of b/l vertebral arteries, LICA occlusion which is alos likely chronic, and patent ZAY which also had about 70% stenosis. Therefore, it is likely that etiology of stroke is due to hypoperfusion, as AZY is the main artery supplying the entire cerebral vasculature. Alternatively, she may have a small plaque that may have emoblized from the ZAY, as there is notable stenosis there. Plan: 1. Stroke: - MRI brain: b/l cerebellar, pontine, and left subortical acute infarcts. - CTA head/neck: Pending - CT head: b/l cerebellar and pontine infarcts. - Echo: EF 50-55%, LA normal size, bubble study negative. -Recommend dual antiplatelet therapy with aspirin 81 mg daily and Plavix 75 mg daily for 30 days, after which Plavix can be stopped. Discussed risks and benefits of dual antiplatelet therapy with patient, and patient agreed to take this. - Cont. statin. LDL goal <70 - Telemetry monitoring while in house - PT/OT/ST - DVT Ppx: Recommend lovenox 2. Hypertension: - As hypoperfusion could cause ischemia and further infarcts in this patient with severely compromised patency of cerebral vasculature, recommend SBP goal of 140-160 to allow for aqeduate blood flow through the patent ZAY. - Will continue to monitor patient. Thank you for allowing me to take part in the care of this patient. Jay Tran MD Neurology This clinical encounter was provided via live telemedicine platform. Consultative service was provided for neurology to support local providers. The Acute Teleneurology team should be contacted with any neurologic worsening or clinical changes, new test results, or new patient history that is reported to or discovered by the local team following completion of the teleneurology consultation, specifically that which has the potential to impact the consultat abe recommendations. Patient/Family was informed the Neurology Consult would happen via TeleHealth consult by way of interactive audio and video telecommunications and consented to receiving care in this manner. Due to the potential for life-threatening deterioration due to underlying neurologic illness, and limited resources available for patient care, telemedicine was used as means of patient care. Telemedicine consultation is limited in the extent of physical exam that can be virtually provided. Time spent evaluating patient includes time for face to face visit via telemedicine, review of medical records, imaging studies and discussion of findings with providers, the patient and/or family.
--- NOTE | 2020-03-15 16:25 | Magnetic Resonance Report ---
MRI BRAIN WITHOUT CONTRAST INDICATION / CLINICAL INFORMATION: Stroke TECHNIQUE: Multiplanar, multisequence MR images of the brain were obtained. COMPARISON: Head CT 02/29/2020 and 03/16/2020. FINDINGS: BRAIN / INTRACRANIAL CONTENTS: Multiple areas of restricted diffusion are identified. The largest of these is located along the post erior lateral aspect of the left occipital lobe. This hyperintensities observed in this same region o n FLAIR and T2-weighted scans. Corresponding decreased signal intensity is noted on ADC map imaging. This represents a subacute infarction. Gyriform hyperintensity is observed on T1-weighted imaging. Th is may reflect presence of petechial hemorrhage associated with this left occipital infarction. No ad ditional areas of restricted diffusion are identified. There is involvement of the right lateral aspe ct of the rajendra and adjacent right middle cerebellar peduncle. There is an area of restricted diffusio n in the junction of the left cerebellar hemisphere and left middle cerebellar peduncle. Several lesi ons are present within the rajendra. On the left this is contiguous with an area of restricted diffusion extending into the mesencephalon all of these lesions are in a posterior circulation distribution. Th ere is a small focus of restricted diffusion in the white matter of the left frontal lobe as well. An area of encephalomalacia is observed involving the left superior frontal gyrus secondary to remote a nterior vertebral artery infarction. Age-related parenchymal volume loss is demonstrated. Mild enlargement of the cortical sulci and ventr icular system is noted in keeping with the patient's stated age of 69 years. Periventricular and deep white matter hyperintensities are noted consistent with age-related microvascular ischemic changes. There is no mass effect. No evidence of extra-axial fluid collection is seen. The brainstem and cerebellum have an unremarkable appearance. CRANIOCERVICAL JUNCTION: No abnormalities are identified at the craniocervical junction. VASCULAR FLOW-VOIDS: Normal flow-voids are present within the major intracranial vessels. ORBITS: The orbits have an unremarkable appearance. SINUSES / MASTOIDS: There is no indication of inflammatory disease in the paranasal sinuses or mastoi d air cells. IMPRESSION: 1. Multifocal subacute infarctions involving left occipital lobe, cerebellar hemispheres and brainste m as described in detail above. 2. Additionally noted is a small focus of restricted diffusion in the white matter of the left fronta l lobe consistent with subacute infarction in this location. Presence of infarctions in multiple vasc ular distributions suggests the possibility of an embolic etiology. 3. Gyriform hyperintensity involving the region of the left occipital lobe infarction on T1-weighted scans may indicate the presence of petechial hemorrhage. Signer Name: Dennis Rangel MD Signed: 03/15/2020 4:20 PM Workstation Name: [id number]
--- NOTE | 2020-03-15 19:41 | Cat Scan Report ---
CTA NECK WITH CONTRAST HISTORY: Stroke COMPARISON: CTA of the neck from 02/29/2020 TECHNIQUE: Routine CTA of the neck was performed. 3-D/MIP reformats were postprocessed. Percentage s tenosis is determined by direct quantitative measurements of diseased internal carotid artery diamete r compared with normal distal internal carotid artery reference segments or by criteria similar to NA SCET where applicable.All CT scans at this location are performed using CT dose reduction for ALARA b y means of automated exposure control CONTRAST: 100 ml of Isovue 370 FINDINGS: Aortic arch: No significant abnormality. Cervical vertebral arteries: Right vertebral origin is stenotic. Focal areas of stenosis seen in the intraosseous, foraminal and extraspinal segments of right vertebral artery. Very limited flow seen in the intracranial vertebral artery. Left vertebral artery also has multiple areas of stenoses in the extraspinal, foraminal segments. Left PICA origin is normal. I am concerned intradural segment of lef t vertebral arteries are patent below the foramen magnum. These findings remain unchanged. Common carotid arteries: There may be less than 50% stenoses in the mid segment of right common carot id artery. Left common carotid artery is normal. Carotid bifurcations: Calcified atheromatous plaque with approximately 70 to 80 % stenoses seen in th e proximal right internal carotid artery. This remains unchanged. Left internal carotid artery is occ luded at the bifurcation. Cervical internal carotid artery: Cervical segment of right internal carotid artery is normal. Cervic al segment of left internal carotid artery is not opacified from collateral circulation. Additional findings: None. IMPRESSION: CT findings remain unchanged since 02/29/2020 Significant vascular disease in the vertebral arteries bilaterally; basilar artery not seen 70-80% stenoses in the proximal right internal carotid artery remains unchanged. Left internal carotid artery is occluded at the origin. Signer Name: Yosef Valentine MD Signed: 03/15/2020 7:36 PM Workstation Name: [id number]
--- NOTE | 2020-03-15 19:49 | Cat Scan Report ---
CTA HEAD WITH CONTRAST HISTORY: Stroke COMPARISON: CTA of the head from 02/29/2020 TECHNIQUE: Routine non-contrast CT Head, CTA of the head and post-contrast CT Head are performed. 3-D /MIP reformats postprocessed. All CT scans at this location are performed using CT dose reduction for ALARA by means of automated exposure control CONTRAST: 100 ml of Omnipaque 350 FINDINGS: CTA of the head remains unchanged. CTA Head: Intracranial vertebral arteries: Left PICA is patent. Intracranial segments of both vertebral arterie s are occluded. Basilar artery: Occluded. Posterior cerebral arteries: Both posterior communicating arteries are continuing as posterior cerebr al arteries. Intracranial internal carotid arteries: Less than 50% narrowing proximal cavernous segment and distal cavernous segment of right internal carotid artery. Cavernous segment of left internal carotid arter y is opacified from collateral circulation at the level of carotid siphon and also through left opht halmic artery collaterals. Anterior cerebral arteries: Right anterior cerebral artery is normal. Left pericallosal artery is opa cified through anterior communicating artery complex. Middle cerebral arteries: Right M1 segment is normal. Collateral circulation to left internal carotid artery opacifies left middle cerebral artery. Decreased flow signal intensity is seen in the left mi ddle cerebral artery branches. Dural venous sinuses:Not optimally opacified. No significant abnormality. Additional findings: None. IMPRESSION: CTA of the head remains unchanged since 02/29/2020 Occluded left internal carotid artery at the bifurcation; collateral circulation to intracranial left internal carotid artery Tandem stenoses of the proximal and distal right internal carotid artery at the cavernous segment Right A1 and M1 segments are normal Collateral circulation opacifies left middle cerebral artery branches Signer Name: Yosef Valentine MD Signed: 03/15/2020 7:45 PM Workstation Name: [id number]
[2020-03-16 04:38] LABS: Basophils % (Auto) 0.2 % (0.0-1.8); Hematocrit 37.9 % (30.3-42.9); Hemoglobin 12.8 gm/dl (10.1-14.3); Lymphocytes # (Auto) 1.2 K/mm3 (1.2-5.4); Lymphocytes % (Auto) 24.4 % (13.4-35.0); Mean Corpuscular HGB Conc 34 % (30-34); Mean Corpuscular Volume 88 fl (79-97); Monocytes # (Auto) 0.2 K/mm3 (0.0-0.8); Monocytes % (Auto) 3.7 % (0.0-7.3); Platelet Count 240 K/mm3 (140-440); Red Blood Count 4.31 M/mm3 (3.65-5.03); Red Cell Distribution Width 14.3 % (13.2-15.2)
[2020-03-16 05:10] LABS: Alanine Aminotransferase 11 units/L (7-56); Albumin 3.8 g/dL (3.9-5); BUN/Creatinine Ratio 22; Blood Urea Nitrogen 20 mg/dL (7-17); Calcium 9.3 mg/dL (8.4-10.2); Hemolysis Index 0
[2020-03-16 06:07] LABS: Chol/HDL Ratio 3.36 %; HDL Cholesterol 47 mg/dL (40-59); LDL Cholesterol,Direct 101 mg/dL (50-130)
[2020-03-16] MEDS: SODIUM CHLORIDE 0.9% 1000 ML 1,000 ML IV SCH (06:41)
[2020-03-16] MEDS: predniSONE 20 MG TAB PO SCH ×2 (10:45→22:07)
[2020-03-16] MEDS: amLODIPine 5 MG TAB PO SCH (10:45)
[2020-03-16] MEDS: FAMOTIDINE 20 MG TAB PO SCH ×2 (10:45→22:06)
[2020-03-16] MEDS: carvediloL 12.5 MG TAB PO SCH ×2 (10:45→22:07)
[2020-03-16] MEDS: ASPIRIN 81 MG TAB CHEW PO SCH (10:45)
[2020-03-16] MEDS: CLOPIDOGREL 75 MG TAB PO SCH (10:45)
--- NOTE | 2020-03-16 11:10 | Progress Note ---
Assessment and Plan Patient is a 69 y/o woman w/ a h/o HTN, CAD s/p CABG, HLD, CVA w/ no residual deficits, who p/w slurred speech and difficulty walking. According to the patient's clinical findings, she has had an acute ischemic stroke. The etiology is likely due to hypoperfusion, as previous CTA head/neck done in February showed likely chronic occlusion of b/l vertebral arteries, LICA occlusion which is alos likely chronic, and patent ZAY which also had about 70% stenosis. Therefore, it is likely that etiology of stroke is due to hypoperfusion, as ZAY is the main artery supplying the entire cerebral vasculature. Alternatively, she may have a small plaque that may have emoblized from the ZAY, as there is notable stenosis there. Plan: 1. Stroke: - MRI brain: b/l cerebellar, pontine, and left subortical acute infarcts. - CTA head/neck: Once again showed LICA and b/l vertebral occlusion which is likely chronic. Therefore entire cerebrovascular supply appears to be dependent upon ZAY. - Discussed with physician from [place] regarding recent admission there. They had attempted cerebral angiogram, however were unable to do so due to difficulty w ith obtaining vascular access. - CT head: b/l cerebellar and pontine infarcts. - Check repeat CTH, as patient has increased Lt. sided weakness today. May be evolution of initial stroke vs. new pathology. - Echo: EF 50-55%, LA normal size, bubble study negative. -Recommend dual antiplatelet therapy with aspirin 81 mg daily and Plavix 75 mg daily, to be taken long-term, given that ZAY appears to be only patent vessel, and it is 70-80% stenosed. Discussed risks and benefits of dual antiplatelet therapy with patient, and patient agreed to take this. This was also recommended upon discharge from [place] 2 weeks ago. - Cont. statin. LDL goal <70 - Telemetry monitoring while in house - PT/OT/ST - DVT Ppx: Recommend lovenox 2. Hypertension: - As hypoperfusion could cause ischemia and further infarcts in this patient with severely compromised patency of cerebral vasculature, recommend SBP goal of 140-160 to allow for aqeduate blood flow through the patent ZAY. - Will sign off as neurologic investigations are complete and treatment plan is in place. Please call with any questions. Thank you for allowing me to take part in the care of this patient. Jay Tran MD Neurology This clinical encounter was provided via live telemedicine platform. Consultative service was provided for neurology to support local providers. The Acute Teleneurology team should be contacted with any neurologic worsening or clinical changes, new test results, or new patient history that is reported to or discovered by the local team following completion of the teleneurology consultation, specifically that which has the potential to impact the consultative recommendations. Patient/Family was informed the Neurology Consult would happen via TeleHealth consult by way of interactive audio and video telecommunications and consented to receiving care in this manner. Due to the potential for life-threatening deterioration due to underlying neurologic illness, and limited resources available for patient care, telemedicine was used as means of patient care. Telemedicine consultation is limited in the extent of physical exam that can be virtually provided. Time spent evaluating patient includes time for face to face visit via telemedicine, review of medical records, imaging studies and discussion of findings with providers, the patient and/or family. Subjective Date of service: 03/16/20 Principal diagnosis: Stroke Interval history: No acute events overnight. Objective - Exam Narrative Exam: Patient is alert, awake, oriented x4, follows complex commands. Noted to have significant dysarthria. No aphasia noted. EOMI, VFF, tongue midline, bilaterally intact to LT, no facial weakness noted. 5/5 strength in RUE/RLE, 4/5 in LLE, 3/5 in LUE. B/l intact to light touch. Bilaterally noted to have dysmetria with FTN and HTS - Vital Sign Vital Signs - 12hr 03/15/20 03/16/20 03/16/20 23:45 03:35 07:52 Temperature 99.1 F 97.9 F 98.6 F Pulse Rate 70 76 59 L Respiratory 18 18 20 Rate Blood Pressure 151/83 146/91 143/65 O2 Sat by Pulse 100 93 100 Oximetry - Laboratory Findings CBC and BMP: 03/16/20 03:54 03/16/20 03:54 Abnormal Lab Findings: Abnormal Labs 03/14/20 03/16/20 03/16/20 17:37 03:54 03:54 Seg Neutrophils % 71.7 H Sodium 133 L Potassium 3.5 L Chloride 91.7 L BUN 20 H 20 H Glucose 198 H 152 H POC Glucose Albumin 3.8 L 03/16/20 08:12 Seg Neutrophils % Sodium Potassium Chloride BUN Glucose POC Glucose 152 H Albumin
--- NOTE | 2020-03-16 14:05 | Cat Scan Report ---
CT HEAD WITHOUT CONTRAST INDICATION : stroke. TECHNIQUE: Axial imaging performed from the skull apex through the skull base without the use of con trast. Sagittal and coronal reformatted images. All CT scans at this location are performed using C T dose reduction for ALARA by means of automated exposure control. COMPARISON: MR brain dated 03/15/2020 FINDINGS: Parenchyma: Evolving ischemic infarcts in the bilateral cerebellar hemispheres, rajendra, cerebellar ped uncles and left posterior watershed region are again identified and evolving. There is no evidence fo r hemorrhage or significant mass effect. No new area of diminished attenuation is identified. Chronic focal cortical infarcts in the left frontal and left parietal lobes are again noted. Ventricles: Ventricles are normal in size and appear symmetric. Bones: No acute osseous abnormality. Sinuses: Sinuses and mastoid air cells are clear. Soft tissues: Soft tissues including the orbits appear normal. IMPRESSION: Evolving ischemic infarcts in the posterior circulation appears stable since the MRI perf ormed yesterday. No evidence for hemorrhage or significant mass effect. Signer Name: Ben Tovar Jr, MD Signed: 03/16/2020 2:00 PM Workstation Name: [id number]
--- NOTE | 2020-03-16 20:48 | Progress Note ---
Hospitalist Physical - Constitutional Vitals: Temp Pulse Resp BP Pulse Ox 98.4 F 67 18 135/54 97 03/16/20 19:57 03/16/20 19:57 03/16/20 19:57 03/16/20 19:57 03/16/20 20:27 General appearance: Present: well-nourished HEART Score - HEART Score Troponin: Troponin T < 0.010 ng/mL (0.00-0.029) 03/14/20 17:37 Results - Labs CBC & Chem 7: 03/16/20 03:54 03/16/20 03:54 Labs: Laboratory Last Values WBC 4.8 K/mm3 (4.5-11.0) 03/16/20 03:54 RBC 4.31 M/mm3 (3.65-5.03) 03/16/20 03:54 Hgb 12.8 gm/dl (10.1-14.3) 03/16/20 03:54 Hct 37.9 % (30.3-42.9) 03/16/20 03:54 MCV 88 fl (79-97) 03/16/20 03:54 MCH 30 pg (28-32) 03/16/20 03:54 MCHC 34 % (30-34) 03/16/20 03:54 RDW 14.3 % (13.2-15.2) 03/16/20 03:54 Plt Count 240 K/mm3 (140-440) 03/16/20 03:54 Lymph % (Auto) 24.4 % (13.4-35.0) 03/16/20 03:54 [place] % (Auto) 3.7 % (0.0-7.3) 03/16/20 03:54 Eos % (Auto) 0.0 % (0.0-4.3) 03/16/20 03:54 Baso % (Auto) 0.2 % (0.0-1.8) 03/16/20 03:54 Lymph # 1.2 K/mm3 (1.2-5.4) 03/16/20 03:54 [place] # 0.2 K/mm3 (0.0-0.8) 03/16/20 03:54 Eos # 0.0 K/mm3 (0.0-0.4) 03/16/20 03:54 Baso # 0.0 K/mm3 (0.0-0.1) 03/16/20 03:54 Seg Neutrophils % 71.7 % (40.0-70.0) H 03/16/20 03:54 Seg Neutrophils # 3.4 K/mm3 (1.8-7.7) 03/16/20 03:54 PT 13.4 Sec. (12.2-14.9) 03/14/20 17:37 INR 1.04 (0.87-1.13) 03/14/20 17:37 APTT 28.4 Sec. (24.2-36.6) 03/14/20 17:37 Thrombin Time 16.0 Sec. (15.1-19.6) 03/14/20 17:37 Sodium 138 mmol/L (137-145) 03/16/20 03:54 Potassium 3.8 mmol/L (3.6-5.0) 03/16/20 03:54 Chloride 98.1 mmol/L (98-107) 03/16/20 03:54 Carbon Dioxide 28 mmol/L (22-30) 03/16/20 03:54 Anion Gap 16 mmol/L 03/16/20 03:54 BUN 20 mg/dL (7-17) H 03/16/20 03:54 Creatinine 0.9 mg/dL (0.7-1.2) 03/16/20 03:54 Estimated GFR > 60 ml/min 03/16/20 03:54 BUN/Creatinine Ratio 22 % 03/16/20 03:54 Glucose 152 mg/dL (65-100) H 03/16/20 03:54 POC Glucose 157 (70-105) H 03/16/20 16:23 Hemoglobin A1c 5.8 % (4-6) 03/15/20 05:24 Calcium 9.3 mg/dL (8.4-10.2) 03/16/20 03:54 Total Bilirubin 0.70 mg/dL (0.1-1.2) 03/16/20 03:54 AST 15 units/L (5-40) 03/16/20 03:54 ALT 11 units/L (7-56) 03/16/20 03:54 Alkaline Phosphatase 92 units/L (35-129) 03/16/20 03:54 Total Creatine Kinase 113 units/L (30-135) 03/14/20 17:37 CK-MB (CK-2) 1.3 ng/mL (0.0-4.0) 03/14/20 17:37 CK-MB (CK-2) Rel Index 1.1 (0-4) 03/14/20 17:37 Troponin T < 0.010 ng/mL (0.00-0.029) 03/14/20 17:37 Total Protein 7.1 g/dL (6.3-8.2) 03/16/20 03:54 Albumin 3.8 g/dL (3.9-5) L 03/16/20 03:54 Albumin/Globulin Ratio 1.2 % 03/16/20 03:54 Triglycerides 70 mg/dL (2-149) 03/16/20 03:54 Cholesterol 158 mg/dL (50-199) 03/16/20 03:54 LDL Cholesterol Direct 101 mg/dL (50-130) 03/16/20 03:54 HDL Cholesterol 47 mg/dL (40-59) 03/16/20 03:54 Cholesterol/HDL Ratio 3.36 % 03/16/20 03:54 Nasal Screen MRSA (PCR) Negative (Negative) 03/15/20 Unknown - Diagnostic Impressions Diagnostic Impressions: Echocardiogram 03/15/20 00:40 Transthoracic Echocardiogram Indication: Stroke BP: 133/87 HR: 79 Conclusions *Global left ventricular systolic function is at the lower limits of normal. *The estimated ejection fraction is 50-55%. *Mild concentric left ventricular hypertrophy is observed. *There is trace of mitral regurgitation. *There is moderate tricuspid regurgitation. *A patent foramen ovale is not demonstrated by agitated saline contrast. Findings Left Ventricle: The left ventricular chamber size is normal. Mild concentric left ventricular hypertrophy is observed. Global left ventricular systolic function is at the lower limits of normal. The estimated ejection fraction is 50-55%. Left Atrium: The left atrial chamber size is normal. Right Ventricle: The right ventricular cavity size is normal. The right ventricular global systolic function is normal. Right Atrium: The right atrial cavity size is normal. A patent foramen ovale is not demonstrated by agitated saline contrast. Aortic Valve: The aortic valve leaflets are mildly thickened. There is no evidence of aortic regurgitation. There is no evidence of aortic stenosis. Mitral Valve: The mitral valve leaflets are mildly thickened. There is trace of mitral regurgitation. There is no evidence of mitral stenosis. Tricuspid Valve: There is moderate tricuspid regurgitation. No pulmonary hypertension is noted. Pulmonic Valve: There is mild pulmonic regurgitation. Pericardium: There is no pericardial effusion. Aorta: There is no dilatation of the ascending aorta. There is no dilatation of the aortic root. Venous: The inferior vena cava appears normal in size. Contrast: Intravenous agitated saline contrast was used to assess intracardiac shunting. Measurements Chambers 2D Name Value Normal Range IVSd (2D) 1.29 cm (0.6 - 1.1) LVPWd (2D) 1.15 cm (0.6 - 1.1) LVIDd (2D) 3.89 cm (3.7 - 5.6) LVIDs (2D) 2.77 cm (2 - 3.8) LV FS (2D) 28.71 % - EF Teichholz (2D) 55.95 % - Ao root diameter (2D) 2.89 cm (2 - 3.7) Volumes/Mass Name Value Normal Range LA ESV SP 4CH (A/L) 17.95 ml - LA ESV SP 2CH (A/L) 19.39 ml - LA ESV BP (A/L) 18.76 ml - LA ESV BP (A/L) index 9.15 ml/m2 - LA ESV SP 4CH (MOD) 17.19 ml - LA ESV SP 2CH (MOD) 18.33 ml - LA ESV BP (MOD) 17.76 ml - LA ESV BP (MOD) index 8.66 ml/m2 - Diastolic/Systolic Function Name Value Normal Range MV E-wave Vmax 0.44 m/sec - MV deceleration time 244.66 msec - MV A-wave Vmax 0.72 m/sec - MV E:A ratio 0.61 ratio - Aortic Valve Name Value Normal Range AV Vmax 1.27 m/sec - AV VTI 19.62 cm - AV peak gradient 6.46 mmHg - AV mean gradient 3.79 mmHg - LVOT diameter 2.02 cm - LVOT Vmax 1.09 m/sec - LVOT VTI 17.09 cm - LVOT peak gradient 4.73 mmHg - LVOT mean gradient 2.24 mmHg - SV LVOT 54.89 ml - MONA (continuity Vmax) 2.75 cm2 - MONA (continuity VTI) 2.8 cm2 - Tricuspid Valve Name Value Normal Range TR Vmax 2.26 m/sec - TR peak gradient 20 mmHg - RAP 3 mmHg - RVSP 23 mmHg - Pulmonic Valve/Qp:Qs Name Value Normal Range PV Vmax 0.82 m/sec - PV peak gradient 2.72 mmHg - PV acceleration time 87.54 msec - Nunez/IV: Voiding Method External Female Catheter IV Catheter Type [Left INT / Saline Lock Antecubital] Active Medications - Current Medications Current Medications: Generic Name Dose Route Start Last Admin Trade Name Freq PRN Reason Stop Dose Admin Acetaminophen 650 mg 03/15/20 00:31 Tylenol PO Q4H PRN Pain MILD(1-3)/Fever >100.5/POSADAS Amlodipine Besylate 5 mg 03/15/20 10:00 03/16/20 10:45 Amlodipine PO 5 mg DAILY JOSEPH Administration Aspirin 81 mg 03/15/20 10:00 03/16/20 10:45 Baby Aspirin PO 81 mg DAILY JOSEPH Administration Atorvastatin Calcium 80 mg 03/15/20 22:00 03/15/20 21:52 Lipitor PO 80 mg QHS JOSEPH Administration Carvedilol 12.5 mg 03/15/20 10:00 03/16/20 10:45 Coreg PO 12.5 mg BID JOSEPH Administration Clopidogrel Bisulfate 75 mg 03/16/20 10:00 03/16/20 10:45 Plavix PO 75 mg QDAY JOSEPH Administration Famotidine 20 mg 03/15/20 10:00 03/16/20 10:45 Pepcid PO 20 mg BID JOSEPH Administration Hydromorphone HCl 0.5 mg 03/15/20 00:31 03/15/20 12:44 Dilaudid IV 0.5 mg Q3H PRN Administration Pain , Severe (7-10) Sodium Chloride 1,000 mls @ 75 mls/hr 03/15/20 00:45 03/16/20 06:41 Nacl 0.9% 1000 Ml IV 75 mls/hr DIRECT JOSEPH Administration Ibuprofen 800 mg 03/15/20 00:25 Ibuprofen PO DAILY PRN Pain, Moderate (4-6) Metoclopramide HCl 10 mg 03/15/20 00:31 Reglan IV Q6H PRN Nausea And Vomiting Ondansetron HCl 4 mg 03/15/20 00:31 Zofran IV Q8H PRN Nausea And Vomiting Oxycodone/Acetaminophen 1 tab 03/15/20 00:31 Percocet 5/325 PO Q6H PRN Pain, Moderate (4-6) Prednisone 20 mg 03/15/20 10:00 03/16/20 10:45 Deltasone PO 20 mg BID JOSEPH Administration Sodium Chloride 10 ml 03/15/20 10:00 03/15/20 21:52 Sodium Chloride Flush Syringe 10 Ml IV 10 ml BID JOSEPH Administration Sodium Chloride 10 ml 03/15/20 00:31 Sodium Chloride Flush Syringe 10 Ml IV PRN PRN LINE FLUSH
[2020-03-17 08:44] VITALS: BP 146/72
[2020-03-17] MEDS: amLODIPine 5 MG TAB PO SCH (10:54)
[2020-03-17] MEDS: ASPIRIN 81 MG TAB CHEW PO SCH (10:54)
[2020-03-17] MEDS: predniSONE 20 MG TAB PO SCH (11:01)
[2020-03-17] MEDS: FAMOTIDINE 20 MG TAB PO SCH (11:01)
[2020-03-17] MEDS: carvediloL 12.5 MG TAB PO SCH (11:01)
[2020-03-17] MEDS: CLOPIDOGREL 75 MG TAB PO SCH (11:02)
== END 2020-03-17 12:20 | disposition home or self-care (01) ==
LOC: ED 16:21 → 4A 19:01 → INTOOBSV 19:01 → 4A 03-15 02:20
PROVIDERS: ADMIT Internal Medicine; ATTEND Internal Medicine
DX: I63.9 Cerebral infarction, unspecified (principal); G93.40 Encephalopathy, unspecified; I10 Essential (primary) hypertension; E11.9 Type 2 diabetes mellitus without complications; I25.10 Atherosclerotic heart disease of native coronary artery without angina pectoris; E78.5 Hyperlipidemia, unspecified; M17.12 Unilateral primary osteoarthritis, left knee; Z95.5 Presence of coronary angioplasty implant and graft; Z79.84 Long term (current) use of oral hypoglycemic drugs; Z79.82 Long term (current) use of aspirin; Z79.899 Other long term (current) drug therapy
CPT/HCPCS: 36415; 70450; 70496; 70498; 70551; 80048; 80053; 80061; 82550; 82553; 82962; 83036; 84484; 85025; 85610; 85670; 85730; 87641; 93005; 93306; 93880; 96374; 96376; 97162; 97530; 99291; A9270; G0378; J1170; J7030; J7512; Q9967; 96375